=== PATIENT | female | born 1990 | race Hispanic/Latino ===

== ENCOUNTER 2017-10-19 02:58 | Inpatient (IN) | payer MEDICARE ==
[~2017-10-19] VITALS: Ht 160 cm; Wt 72.7 kg
[2017-10-19] MEDS ORDERED: MORPHINE SULFATE 2 MG/ML SYR IV STA (03:23)
[2017-10-19] MEDS ORDERED: SODIUM CHLORIDE 0.9% 1000ML 1,000 ML IV STA (03:23)
[2017-10-19] MEDS ORDERED: PANTOPRAZOLE 40 MG 10ML VIAL IV STA (03:23)
[2017-10-19] MEDS ORDERED: ONDANSETRON HCL 4 MG ORAL DISINTEGRATING TAB PO ONE (03:30)
[2017-10-19 03:44] LABS: BASOPHILS % 0.4 % (0.0-1.0); EOSINOPHILS % 0.1 % (0.0-6.0); HEMATOCRIT 40.4 % (34.2-44.1); HEMOGLOBIN 14.2 g/dL (12.0-16.0); LYMPHOCYTES # (AUTO) 1.6 (1.0-3.2); LYMPHOCYTES % 20.2 % (18.0-39.1); MEAN CORPUSCULAR HEMOGLOBIN 29.8 pg (28-32); MEAN CORPUSCULAR HGB CONC 35.1 g/dL (31-35); MEAN CORPUSCULAR VOLUME 84.7 fL (81-99); MONOCYTES # (AUTO) 0.6 (0.2-0.8); MONOCYTES % 7.4 % (4.4-11.3); NEUTROPHILS # (AUTO) 5.5 (2.1-6.9); NEUTROPHILS % 71.6 % (38.7-80.0); PLATELET COUNT 246 x10e3/uL (140-360); RED BLOOD COUNT 4.77 x10e6/uL (3.6-5.1); RED CELL DISTRIBUTION WIDTH 13.7 % (11.7-14.4)
[2017-10-19 03:48] LABS: CLARITY,URINE CLOUDY (CLEAR); COLOR,URINE RED (YELLOW); LEUKOCYTE ESTERASE ,URINE TRACE (NEGATIVE); PREGNANCY TEST, URINE NEGATIVE (NEGATIVE)
[2017-10-19 03:49] LABS: BILIRUBIN,URINE 1+ (NEGATIVE); KETONES,URINE NEGATIVE (NEGATIVE); NITRITE,URINE NEGATIVE (NEGATIVE); PROTEIN,URINE DIPSTICK 3+ (NEGATIVE); URINE UROBILINOGEN 4 mg/dL (0.2 - 1)
[2017-10-19 03:52] LABS: INR 1.06
[2017-10-19 03:53] LABS: PARTIAL THROMBOPLASTIN TIME 26.5 seconds (23.8-35.5)
[2017-10-19 04:01] LABS: BACTERIA,URINE FEW /HPF; EPITHELIAL CELLS,URINE FEW /LPF; RBC,URINE >50 /HPF (0-5)
[2017-10-19 04:03] LABS: ALANINE AMINOTRANSFERASE 69 IU/L (0-55); ALBUMIN 3.6 g/dL (3.5-5.0); ALBUMIN/GLOBULIN RATIO 0.9 (0.8-2.0); ALKALINE PHOSPHATASE 78 IU/L (40-150); AMYLASE 2978 U/L (25-125); ANION GAP 11.6 mmol/L (8-16); BLOOD UREA NITROGEN 14 mg/dL (7-26); BUN/CREATININE RATIO 18 (6-25); CALCIUM 9.4 mg/dL (8.4-10.2); CARBON DIOXIDE 26 mmol/L (22-29); CHLORIDE 102 mmol/L (98-107); CREATINE KINASE 123 IU/L (29-168); CREATININE, SERUM 0.77 mg/dL (0.57-1.11); EST GLOMERULAR FILTRATION RATE > 60 ML/MIN (60-); GLUCOSE 135 mg/dL (74-118); POTASSIUM 3.6 mmol/L (3.5-5.1); SODIUM 136 mmol/L (136-145)
--- NOTE | 2017-10-19 04:17 | Diagnostic Imaging Report ---
CHEST SINGLE (PORTABLE), 10/19/2017 3:23 AM Technique: CHEST SINGLE (PORTABLE) Comparison: None available. Clinical history: Abdominal pain, nausea, vomiting Findings: See Impression Impression: Limited by portable technique. 1. Normal cardiomediastinal silhouette for technique. 2. No consolidation. 3. No pleural effusion or pneumothorax. Signed by: Dr Stefany Gillis MD on 10/19/2017 4:13 AM
[2017-10-19 05:11] LABS: CHOL/HDL RATIO 2.7 (3.0-3.6)
--- NOTE | 2017-10-19 05:42 | Diagnostic Imaging Report ---
EXAM: CT ABDOMEN/PELVIS W DATE: 10/19/2017 4:08 AM INDICATION: \S\VICKIE/RUQ ABD PAIN, N/V \[id number] \S\[id number] COMPARISON: None TECHNIQUE: The abdomen and pelvis were scanned using a multidetector helical scanner. Coronal and sagittal reformations were obtained. Routine protocol performed. IV Contrast: 100 ml Isovue 300/370 FINDINGS: LOWER THORAX: No consolidations LIVER/BILIARY: No masses. No ductal dilatation. GALLBLADDER: No gallstones evident on CT. SPLEEN: Unremarkable PANCREAS: Slightly heterogeneous and enlarged pancreas with peripancreatic fluid and stranding. No evidence of pancreatic necrosis. ADRENALS: No nodules KIDNEYS: Symmetric perfusion. No enhancing masses. No hydronephrosis. GI TRACT: No wall thickening or evidence of obstruction. Normal appendix. VESSELS: Unremarkable PERITONEUM/RETROPERITONEUM: No free air or fluid collections. LYMPH NODES: No lymphadenopathy REPRODUCTIVE ORGANS/BLADDER: Unremarkable SOFT TISSUES: Unremarkable BONES: No suspicious bone lesions. IMPRESSION: Interstitial edematous pancreatitis. Signed by: Dr Stefany Gillis MD on 10/19/2017 5:38 AM
[2017-10-19] MEDS ORDERED: KCL 20MEQ/.9 SOD CHL 1,000 ML IV ONE (05:45)
[2017-10-19] MEDS ORDERED: ONDANSETRON HCL 4 MG ORAL DISINTEGRATING TAB PO PRN (05:45)
[2017-10-19] MEDS ORDERED: PROMETHAZINE HCL (IM) 25 MG/ML VIAL IV PRN (05:45)
--- OUTSIDE RECORDS SUMMARY | 2017-10-19 05:51 | XMS REPORT ---
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 Allergies, Adverse Reactions, Alerts This patient has no known allergies or adverse reactions. Medications This patient has no known medications. Results Test Description Test Time Test Comments Text Results Atomic Results Result Comments CT ABDOMEN/PELVIS W [place] [address] Patient Name: REKHA CASTILLO MR #: [id number] : 1990 Age/Sex: 27/F Req #: [id number] Adm Physician: Ordered by: SANKET ROSA MD Report #: [id number] Location: ER Room/Bed: Procedure: [id number] CT/CT ABDOMEN/PELVIS W Exam Date: 10/19/17 Exam Time: 455 REPORT STATUS: Signed EXAM: CT ABDOMEN/ PELVIS W DATE: 10/19/2017 4:08 AM INDICATION: S VICKIE/RUQ ABD PAIN, N/V S [id number] S 455 COMPARISON: None TECHNIQUE: The abdomen and pelvis were scanned using a multidetector helical scanner. Coronal and sagittal reformations were obtained. Routine protocol performed. IV Contrast: 100 ml Isovue 300/370 FINDINGS: LOWER THORAX: No consolidations LIVER/ BILIARY: No masses. No ductal dilatation. GALLBLADDER: No gallstones evident on CT. SPLEEN: Unremarkable PANCREAS: Slightly heterogeneous and enlarged pancreas with peripancreatic fluid and stranding. No evidence of pancreatic necrosis. ADRENALS: No nodules KIDNEYS: Symmetric perfusion. No enhancing masses. No hydronephrosis. GI TRACT: No wall thickening or evidence of obstruction. Normal appendix. VESSELS: Unremarkable PERITONEUM/RETROPERITONEUM: No free air or fluid collections. LYMPH NODES: No lymphadenopathy REPRODUCTIVE ORGANS/BLADDER: Unremarkable SOFT TISSUES : Unremarkable BONES: No suspicious bone lesions. IMPRESSION: Interstitial edematous pancreatitis. Signed by: Dr Sintia Gillis MD on 5:38 AM Dictated By: SINTIA GILLIS MD 7 Transcribed By: KIRT on 10/19/17537 COPY TO: SANKET ROSA MD CHEST SINGLE (PORTABLE) [place] [address] Patient Name: REKHA CASTILLO MR #: [id number] : 1990 Age/Sex: 27/F Req #: [id number] Adm Physician: Ordered by: SANKET ROSA MD Report #: [id number] Location: ER Room/Bed: Procedure: [id number] DX/CHEST SINGLE (PORTABLE) Exam Date: 10/19/17 Exam Time: 0340 REPORT STATUS: Signed CHEST SINGLE ( PORTABLE), 10/19/2017 3:23 AM Technique: CHEST SINGLE (PORTABLE) Comparison: None available. Clinical history: Abdominal pain, nausea, vomiting Findings: See Impression Impression: Limited by portable technique. 1. Normal cardiomediastinal silhouette for technique. 2. No consolidation. 3. No pleural effusion or pneumothorax. Signed by: Dr Sintia Gillis MD on 10/19/2017 4:13 AM Dictated By: SINTIA GILLIS MD 2 Transcribed By: KIRT on 10/19/17412 COPY TO: SANKET ROSA MD
[2017-10-19] MEDS ORDERED: SODIUM CHLORIDE 0.9% 50ML 50 ML ONE (06:29)
[2017-10-19] MEDS ORDERED: IOPAMIDOL 370 MG/ML 200 ML INFUS..BTL INJ ONE (06:30)
[2017-10-19 06:36] LABS: LIPASE 10369 U/L (8-78)
--- NOTE | 2017-10-19 07:52 | Diagnostic Imaging Report ---
PROCEDURE:US GALLBLADDER COMPARISON:CT abdomen and pelvis also 10/19/2017. INDICATIONS:RUQ Pain TECHNIQUE: Duenas-scale and color doppler transverse and longitudinal images of the right upper quadrant of the abdomen were obtained. FINDINGS: Liver: 13 cm in right mid-clavicular line. Normal parenchymal echogenicity. No masses. Main portal vein: 1.0 cm in caliber. Hepatopedal flow. Gallbladder: Multiple mobile shadowing calculi without wall thickening or pericholecystic fluid. Common Bile Duct: 0.4 cm Sonographic Nascimento's sign: Reported as negative. Right kidney: 12 cm in length. Normal renal cortical echogenicity. No solid masses or hydronephrosis. Pancreas: The visualized portions are unremarkable. Inferior vena cava: Patent Aorta: Non-aneurysmal Ascites: None in the right upper quadrant of the abdomen. CONCLUSION: Cholelithiasis without sonographic evidence of acute cholecystitis. Acute pancreatitis, seen to better advantage on comparison CT from earlier 10/19/2017. Dictated by: Chivo Downey M.D. on 10/19/2017 at 7:54 Electronically approved by: Chivo Downey M.D. on 10/19/2017 at 7:54
[2017-10-19] MEDS: D5.45%NS/KCL 20MEQ 1,000 ML IV SCH ×3 (08:30→21:25)
[2017-10-19] MEDS: PANTOPRAZOLE 40 MG 10ML VIAL IV SCH ×2 (08:30→16:12)
[2017-10-19] MEDS: PIPER-TAZ 3.375 GM 50 ML IV SCH ×3 (08:30→17:44)
[2017-10-19] MEDS: MORPHINE SULFATE 2 MG/ML SYR IV PRN ×3 (11:05→20:51)
[2017-10-19 15:50] VITALS: BP 117/79
[2017-10-19 16:02] VITALS: BP 120/66
[2017-10-19] MEDS: FAMOTIDINE 20 MG/2 ML VIAL IV SCH (18:18)
[2017-10-19 20:00] VITALS: BP 121/56
[2017-10-20] VITALS (7 sets, daily range): BP systolic 102–126; BP diastolic 56–70
[2017-10-20] MEDS ORDERED: SODIUM CHLORIDE 0.9% 50ML 50 ML ONE (00:17)
[2017-10-20] MEDS: D5.45%NS/KCL 20MEQ 1,000 ML IV SCH ×3 (03:46→21:26)
[2017-10-20 07:07] LABS: BASOPHILS % 0.5 % (0.0-1.0); EOSINOPHILS # (AUTO) 0.1 (0.0-0.4); EOSINOPHILS % 2.3 % (0.0-6.0); HEMATOCRIT 36.2 % (34.2-44.1); HEMOGLOBIN 12.2 g/dL (12.0-16.0); LYMPHOCYTES # (AUTO) 2.1 (1.0-3.2); LYMPHOCYTES % 34.6 % (18.0-39.1); MEAN CORPUSCULAR HEMOGLOBIN 29.4 pg (28-32); MEAN CORPUSCULAR HGB CONC 33.7 g/dL (31-35); MEAN CORPUSCULAR VOLUME 87.2 fL (81-99); MONOCYTES # (AUTO) 0.5 (0.2-0.8); NEUTROPHILS # (AUTO) 3.3 (2.1-6.9); NEUTROPHILS % 54.3 % (38.7-80.0); PLATELET COUNT 196 x10e3/uL (140-360); RED BLOOD COUNT 4.15 x10e6/uL (3.6-5.1); RED CELL DISTRIBUTION WIDTH 14.3 % (11.7-14.4)
[2017-10-20] MEDS: FAMOTIDINE 20 MG/2 ML VIAL IV SCH ×2 (07:52→17:07)
[2017-10-20 07:53] LABS: ALANINE AMINOTRANSFERASE 43 IU/L (0-55); ALBUMIN 3.1 g/dL (3.5-5.0); ALKALINE PHOSPHATASE 68 IU/L (40-150); AMYLASE 460 U/L (25-125); BLOOD UREA NITROGEN 5 mg/dL (7-26); BUN/CREATININE RATIO 7 (6-25); CALCIUM 8.5 mg/dL (8.4-10.2); CARBON DIOXIDE 26 mmol/L (22-29); CHLORIDE 108 mmol/L (98-107); CREATININE, SERUM 0.74 mg/dL (0.57-1.11); EST GLOMERULAR FILTRATION RATE > 60 ML/MIN (60-); GLUCOSE 96 mg/dL (74-118); LIPASE 507 U/L (8-78); SODIUM 138 mmol/L (136-145)
[2017-10-20] MEDS: MORPHINE SULFATE 2 MG/ML SYR IV PRN ×2 (11:05→22:30)
--- NOTE | 2017-10-20 18:28 | Consultation ---
DATE OF CONSULTATION: October 20, 2017 SURGICAL CONSULTATION CHIEF COMPLAINT: Abdominal pain. HISTORY OF PRESENT ILLNESS: The patient is a 27-year-old female with a 1-day history of pain starting in the epigastric area, radiating into the back with nausea but no vomiting. No fever, chills or diarrhea. PAST MEDICAL HISTORY: Unremarkable for chronic illness. SURGICAL HISTORY: Positive for a left foot injury with ORIF. ALLERGIES: SHE IS ALLERGIC TO NO DRUGS. SOCIAL HABITS: The patient does not smoke or drink alcohol. REVIEW OF SYSTEMS: No chest pain, shortness of breath or cough. She does have poor hearing on the right ear. PHYSICAL EXAMINATION: VITALS: Stable. She is afebrile. GENERAL: She is awake, alert, in no apparent distress. HEENT: Sclerae anicteric. NECK: Supple. LUNGS: Clear. HEART: Regular rate and rhythm. ABDOMEN: Soft with mild guarding in the epigastrium with no rebound. EXTREMITIES: Without cyanosis or edema. Her creatinine is 0.7. Bilirubin was 1.5, and repeated level was 0.6. Amylase was 2978 with repeated value 460. Lipase was 10,369 and has come down to 507. Gallbladder ultrasound has shown gallstone with evidence of pancreatic inflammation. ASSESSMENT: Cholelithiasis with possible passage of stone with pancreatitis resolving. PLAN: Laparoscopic cholecystectomy in a.m. Attendant risks were discussed with patient. Job#: [id number] TIMUR
[2017-10-21] VITALS: BP 118/68
[2017-10-21 04:00] VITALS: BP 96/59
[2017-10-21] MEDS: D5.45%NS/KCL 20MEQ 1,000 ML IV SCH ×3 (06:16→19:17)
[2017-10-21 06:59] LABS: BASOPHILS % 0.5 % (0.0-1.0); EOSINOPHILS # (AUTO) 0.1 (0.0-0.4); EOSINOPHILS % 2.4 % (0.0-6.0); HEMATOCRIT 37.1 % (34.2-44.1); HEMOGLOBIN 12.7 g/dL (12.0-16.0); LYMPHOCYTES # (AUTO) 1.3 (1.0-3.2); MEAN CORPUSCULAR HEMOGLOBIN 29.9 pg (28-32); MEAN CORPUSCULAR HGB CONC 34.2 g/dL (31-35); MEAN CORPUSCULAR VOLUME 87.3 fL (81-99); MONOCYTES # (AUTO) 0.5 (0.2-0.8); MONOCYTES % 8.4 % (4.4-11.3); NEUTROPHILS # (AUTO) 3.6 (2.1-6.9); NEUTROPHILS % 65.5 % (38.7-80.0); PLATELET COUNT 175 x10e3/uL (140-360); RED BLOOD COUNT 4.25 x10e6/uL (3.6-5.1); RED CELL DISTRIBUTION WIDTH 14.1 % (11.7-14.4)
[2017-10-21 07:24] LABS: BLOOD UREA NITROGEN 6 mg/dL (7-26); BUN/CREATININE RATIO 8 (6-25); CALCIUM 9.1 mg/dL (8.4-10.2); CARBON DIOXIDE 26 mmol/L (22-29); CREATININE, SERUM 0.74 mg/dL (0.57-1.11); EST GLOMERULAR FILTRATION RATE > 60 ML/MIN (60-); GLUCOSE 93 mg/dL (74-118); LIPASE 76 U/L (8-78)
[2017-10-21 07:38] LABS: ANION GAP 9.2 mmol/L (8-16); CHLORIDE 105 mmol/L (98-107); POTASSIUM 4.2 mmol/L (3.5-5.1); SODIUM 136 mmol/L (136-145)
[2017-10-21 08:33] VITALS: BP 126/58
[2017-10-21] MEDS: FAMOTIDINE 20 MG/2 ML VIAL IV SCH ×2 (08:53→16:56)
[2017-10-21] MEDS ORDERED: BUPIVACAINE 0.25%/EPI 30ML SDV INJ ONE (13:24)
[2017-10-21 13:59] VITALS: BP 118/57
[2017-10-21] MEDS ORDERED: FENTANYL CITRATE/PF 100MCG/2 ML INJ ONE ×2 (14:49→16:04)
[2017-10-21] MEDS ORDERED: MIDAZOLAM HCL 2 MG/2 ML VIAL ONE (14:49)
--- NOTE | 2017-10-21 15:53 | Operative Report ---
DATE OF PROCEDURE: October 21, 2017 PREOPERATIVE DIAGNOSIS: Gallstone pancreatitis. POSTOPERATIVE DIAGNOSIS: Gallstone pancreatitis. OPERATIVE PROCEDURE: Laparoscopic cholecystectomy. ICT PROJECT MANAGER: None. ANESTHESIA: General endotracheal. INDICATIONS: This is a 27-year-old female with history of abdominal pain in the epigastrium with gallstones and elevated serum lipase. After the pancreatitis has resolved, patient consented for laparoscopic cholecystectomy with attendant risks discussed. PROCEDURE FINDINGS: Chronic cholecystitis with cholelithiasis. DESCRIPTION OF PROCEDURE: The patient was brought to the OR intubated. Abdomen was prepped with alcohol and draped in sterile fashion. Infraumbilical incision was made and a 10-mm port inserted. Insufflation then began. Under direct vision, the other port sites were placed in the mid epigastric and right upper quadrant. Gallbladder was chronically distended. Fundus was retracted in cephalad direction. Neck of the gallbladder was retracted laterally. With blunt dissection, the cystic artery was isolated, triply clipped and divided. Cystic duct was dissected down to the junction with the common bile duct, and the cystic duct was then triply clipped 5 mm away from the junction and the cystic duct divided between clips. Gallbladder was detached from the liver with cautery and taken out through the umbilical incision. The operative field was then irrigated. Hemostasis achieved. All ports were removed under direct vision. Fascial closure with #0 Vicryl and skin with a subcuticular stitch. The patient was extubated and transported to the recovery room. Estimated blood loss was 5 mL. Job#: [id number]
[2017-10-21] MEDS ORDERED: PROPOFOL IV EMULSION 10 MG/ML 20 ML VIAL ONE (17:37)
[2017-10-21] MEDS ORDERED: KETOROLAC TROMETHAMINE 30 MG/ML VIAL ONE (17:37)
[2017-10-21] MEDS ORDERED: DEXAMETHASONE SOD PHOS INJ 4 MG/ML VIAL ONE (17:37)
[2017-10-21] MEDS ORDERED: LIDOCAINE HCL 2% LOCAL INJ 5 ML SDV VIAL INJ ONE (17:37)
[2017-10-21] MEDS ORDERED: ROCURONIUM BROMIDE 10 MG/ML 5ML VIAL ONE (17:37)
[2017-10-21] MEDS ORDERED: SEVOFLURANE INHAL SOLN 250 ML PEN BTL ONE (17:37)
[2017-10-21] MEDS ORDERED: ONDANSETRON HCL INJ 2 MG/ML VIAL ONE (17:37)
[2017-10-21] MEDS: ACETAMINOPHEN/CODEINE 300MG - 30MG TAB PO PRN (18:13)
[2017-10-21 22:13] VITALS: BP 119/73
[2017-10-22] VITALS: BP 124/67
[2017-10-22] MEDS: ACETAMINOPHEN/CODEINE 300MG - 30MG TAB PO PRN (00:54)
[2017-10-22 04:00] VITALS: BP 110/56
[2017-10-22 08:02] VITALS: BP 98/51
[2017-10-22] MEDS: FAMOTIDINE 20 MG/2 ML VIAL IV SCH (08:18)
--- NOTE | 2017-10-22 14:24 | Discharge Summary ---
FINAL DIAGNOSIS: Acute pancreatitis due to gallstones. SECONDARY DIAGNOSIS: Autism. ROUTER OPERATOR RADIAL: Dr. Myers PROCEDURES/STUDIES PERFORMED: Laparoscopic cholecystectomy. HISTORY: Per [facility] HOSPITAL COURSE: The patient was admitted. She was put on n.p.o. IV fluids were started. Clinically, her pancreatitis resolved fairly quickly. Her lipase was normal. The patient underwent uneventful laparoscopic cholecystectomy. The patient was also found to have chronic cholecystitis intraoperatively. The patient currently is tolerating a soft diet. She was advised to be on a low fat diet. The patient was prescribed 20 tablets of Tylenol No. 3 as needed. I discussed this case with Dr. Myers. The patient will be going home today. She will follow up with Dr. Myers next week. The patient was seen and examined today. It took 32 minutes total to discharge this patient. CONDITION ON DISCHARGE: Improved. DISCHARGE MEDICATIONS: Please see medication reconciliation form. DARA JACKMAN M.D. Job#: [id number]
== END 2017-10-22 09:34 | disposition home or self-care (01) | DRG 418 ==
LOC: ER 02:58 → ERHOLD 05:48 → MED/SURG 15:18
PROVIDERS: ADMIT Internal Medicine; ATTEND Internal Medicine
PROC: 0FT44ZZ Resection of Gallbladder, Percutaneous Endoscopic Approach (ICD-10-PCS; principal; 2017-10-21 14:14)
DX: K85.10 Biliary acute pancreatitis without necrosis or infection (principal); K80.10 Calculus of gallbladder with chronic cholecystitis without obstruction
CPT/HCPCS: 36415; 71045; 74177; 76705; 80048; 80053; 80061; 81001; 81025; 82150; 82550; 82553; 83690; 83735; 84484; 85025; 85610; 85730; 88304; 99284; J1100; J1885; J2001; J2250; J2270; J2405; J2543; J2550; J7030; Q9967

== ENCOUNTER 2018-07-26 12:30 | Emergency (ER) | payer MEDICARE ==
[~2018-07-26] VITALS: Ht 160 cm; Wt 72.6 kg
[2018-07-26 13:26] LABS: CLARITY,URINE SL CLOUDY (CLEAR); COLOR,URINE YELLOW (YELLOW); PROTEIN,URINE DIPSTICK 1+ (NEGATIVE)
[2018-07-26 13:27] LABS: BILIRUBIN,URINE NEGATIVE (NEGATIVE); KETONES,URINE NEGATIVE (NEGATIVE); LEUKOCYTE ESTERASE ,URINE NEGATIVE (NEGATIVE); NITRITE,URINE NEGATIVE (NEGATIVE); URINE UROBILINOGEN 0.2 mg/dL (0.2 - 1)
[2018-07-26 13:42] LABS: AMORPHOUS SEDIMENT,URINE MODERATE (FEW); BACTERIA,URINE MANY /HPF
[2018-07-26] MEDS ORDERED: SODIUM CHLORIDE 0.9% 1000ML 1,000 ML IV STA (14:04)
[2018-07-26] MEDS ORDERED: MORPHINE SULFATE 2 MG/ML SYR 1ML IV STA (14:04)
[2018-07-26] MEDS ORDERED: MORPHINE SULFATE INJ 4 MG/ML INJ 1ML IV ONE (14:15)
[2018-07-26] MEDS ORDERED: ONDANSETRON HCL INJ 2MG/ML 2ML 2 MG/ML VIAL IV ONE (14:15)
[2018-07-26] MEDS ORDERED: PANTOPRAZOLE 40 MG 10ML VIAL IV ONE (14:15)
[2018-07-26 16:07] LABS: BASOPHILS % 0.3 % (0.0-1.0); EOSINOPHILS % 0.3 % (0.0-6.0); HEMOGLOBIN 15.3 g/dL (12.0-16.0); LYMPHOCYTES # (AUTO) 1.1 (1.0-3.2); LYMPHOCYTES % 18.9 % (18.0-39.1); MEAN CORPUSCULAR HEMOGLOBIN 30.2 pg (28-32); MEAN CORPUSCULAR HGB CONC 34.8 g/dL (31-35); MEAN CORPUSCULAR VOLUME 86.8 fL (81-99); MONOCYTES # (AUTO) 0.4 (0.2-0.8); MONOCYTES % 7.2 % (4.4-11.3); NEUTROPHILS # (AUTO) 4.3 (2.1-6.9); NEUTROPHILS % 73.1 % (38.7-80.0); PLATELET COUNT 233 x10e3/uL (140-360); RED BLOOD COUNT 5.07 x10e6/uL (3.6-5.1); RED CELL DISTRIBUTION WIDTH 13.2 % (11.7-14.4)
[2018-07-26 16:34] LABS: ALANINE AMINOTRANSFERASE 59 IU/L (0-55); ALBUMIN 4.4 g/dL (3.5-5.0); ALBUMIN/GLOBULIN RATIO 1.2 (0.8-2.0); ALKALINE PHOSPHATASE 83 IU/L (40-150); AMYLASE 108 U/L (25-125); ANION GAP 15.6 mmol/L (8-16); BLOOD UREA NITROGEN 19 mg/dL (7-26); BUN/CREATININE RATIO 24 (6-25); CALCIUM 9.6 mg/dL (8.4-10.2); CARBON DIOXIDE 23 mmol/L (22-29); CHLORIDE 101 mmol/L (98-107); CREATININE, SERUM 0.78 mg/dL (0.57-1.11); EST GLOMERULAR FILTRATION RATE > 60 ML/MIN (60-); GLUCOSE 95 mg/dL (74-118); LIPASE 74 U/L (8-78); POTASSIUM 3.6 mmol/L (3.5-5.1); SODIUM 136 mmol/L (136-145)
--- NOTE | 2018-07-26 19:42 | Diagnostic Imaging Report ---
EXAM: CT Abdomen and Pelvis WITH contrast INDICATION: ^N/V/D, LOWER ABD PAIN COMPARISON: CT abdomen and pelvis 10/19/2017. TECHNIQUE: Abdomen and pelvis were scanned utilizing a multidetector helical scanner from the lung base to the pubic symphysis after administration of IV contrast. Coronal and sagittal reformations were obtained. Routine protocol was performed. Scan was performed when during portal venous phase. IV CONTRAST: 100 mL of Isovue 370 ORAL CONTRAST: Water COMPLICATIONS: None RADIATION DOSE: Total DLP: 394.82 mGy*cm Estimated effective dose: (DLP x 0.015 x size factor) mSv CTDIvol has been reviewed. It is below the limits set by the Radiation Protocol Committee (RPC). FINDINGS: LINES and TUBES: None. LOWER THORAX: Unremarkable HEPATOBILIARY: No focal hepatic lesions. No biliary ductal dilation. GALLBLADDER: There are cholecystectomy clips. SPLEEN: No splenomegaly. PANCREAS: No focal masses or ductal dilatation. ADRENALS: No adrenal nodules KIDNEYS/URETERS: Kidneys enhance symmetrically. No hydronephrosis. No cystic or solid mass lesions. No stones. GI TRACT: No abnormal distention, wall thickening, or evidence of bowel obstruction. Appendix is not clearly identified. There is however no fat stranding or adenopathy in the right lower quadrant to suggest appendicitis. PELVIC ORGANS/BLADDER: Unremarkable. LYMPH NODES: No lymphadenopathy. VESSELS: Unremarkable. PERITONEUM / RETROPERITONEUM: No free air or fluid. BONES: Unremarkable. SOFT TISSUES: Unremarkable. IMPRESSION: No acute abnormalities in the abdomen or pelvis. Signed by: Dr. Bolivar Forman M.D. on 07/26/2018 7:39 PM
[2018-07-26 19:50] VITALS: BP 122/79
[2018-07-26] MEDS ORDERED: SODIUM CHLORIDE 0.9% 50ML 50 ML ONE (21:49)
[2018-07-26] MEDS ORDERED: IOPAMIDOL 370 MG/ML 200 ML INFUS..BTL INJ ONE (21:49)
== END 2018-07-26 19:58 | disposition home or self-care (01) ==
LOC: ER 12:30
DX: R10.30 Lower abdominal pain, unspecified (principal); R11.2 Nausea with vomiting, unspecified; R19.7 Diarrhea, unspecified
CPT/HCPCS: 36415; 74177; 80053; 81001; 81025; 82150; 83690; 83735; 85025; 99284; C9113; J2270; J2405; J7030; Q9967

== ENCOUNTER 2018-08-20 23:39 | Emergency (ER) | payer MEDICARE ==
[~2018-08-20] VITALS: Ht 160 cm; Wt 72.6 kg
== END 2018-08-21 00:36 | disposition left against medical advice (07) ==
LOC: ER 23:39
DX: R22.0 Localized swelling, mass and lump, head (principal)

== ENCOUNTER 2019-03-30 20:14 | Emergency (ER) | payer MEDICARE ==
[~2019-03-30] VITALS: Ht 160 cm; Wt 72.6 kg
[2019-03-30] MEDS ORDERED: LIDOCAINE HCL 1% LOCAL INJ 20 ML VIAL ONE (21:29)
[2019-03-30] MEDS ORDERED: IBUPROFEN 200 MG TAB PO ONE (21:30)
[2019-03-30] MEDS ORDERED: CEFTRIAXONE SOD 1 GM VIAL IM ONE (21:30)
[2019-03-30] MEDS ORDERED: ACETAMINOPHEN 325 MG TAB PO ONE (21:30)
== END 2019-03-30 22:00 | disposition home or self-care (01) ==
LOC: ER 20:14
DX: H66.92 Otitis media, unspecified, left ear (principal); R51 Headache; F84.0 Autistic disorder; H91.3 Deaf nonspeaking, not elsewhere classified
CPT/HCPCS: 99282; J0696; J2001

== ENCOUNTER 2020-01-30 18:57 | Emergency (ER) | payer MEDICARE ==
[~2020-01-30] VITALS: Ht 160 cm; Wt 72.6 kg
[2020-01-30] MEDS ORDERED: SODIUM CHLORIDE 0.9% 1000ML 1,000 ML IV STA ×2 (19:45→21:32)
[2020-01-30] MEDS ORDERED: EPINEPHRINE HCL 1:1000 1ML 1 MG/ML AMP IM ONE (19:45)
[2020-01-30] MEDS ORDERED: METHYLPREDNISOLONE SOD SUCC 125 MG/2ML VIAL IV ONE (19:45)
[2020-01-30] MEDS ORDERED: FAMOTIDINE 20 MG/2 ML VIAL IV STA (19:45)
--- NOTE | 2020-01-30 19:51 | Emergency Department Note ---
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 Any updates have been documented here. Past Medical History Recent Fever: No Clinical Suspicion of Infectio: No New/Unexplained Change in Ment: No Past Medical History: None Other Medical History: AUTISM DEAF Past Surgical History: Cholecysctectomy Other Surgery: FOOT SURGERY Social History Smoking Cessation: Never Smoker Alcohol Use: None Any Illegal Drug Use: No Other Last Tetanus: UNKNOWN Review of Systems Review of Systems Constitutional: Reports weakness EENTM: Reports no symptoms Cardiovascular: Reports no symptoms Respiratory: Reports no symptoms Gastrointestinal: Reports no symptoms Genitourinary: Reports no symptoms Musculoskeletal: Reports no symptoms Integumentary: Reports rash Neurological: Reports no symptoms Psychological: Reports no symptoms Endocrine: Reports no symptoms Hematological/Lymphatic: Reports no symptoms Physical Exam Related Data Allergies: Coded Allergies: clindamycin (Verified Allergy, Unknown, 07/26/18) corn (Verified Allergy, Unknown, 10/19/17) egg (Verified Allergy, Unknown, 10/19/17) shrimp (Verified Allergy, Unknown, 10/19/17) Triage Vital Signs Vital Signs Date Time Temp Pulse Resp B/P (MAP) Pulse Ox O2 Delivery O2 Flow Rate FiO2 01/30/20 19:35 97.7 72 20 139/79 100 Room Air Vital signs reviewed: Yes Physical Exam CONSTITUTIONAL Constitutional: Present obese, Present distressed, Present ill appearing HENT HENT: Present normocephalic, Present atraumatic, Present oropharynx clear/moist, Present nose normal HENT L/R: Present left ext ear normal, Present right ext ear normal EYES Eyes: Reports PERRL, Reports conjunctivae normal NECK Neck: Present ROM normal PULMONARY Pulmonary: Present effort normal, Present breath sounds normal CARDIOVASCULAR Cardiovascular: Present regular rhythm, Present heart sounds normal, Present capillary refill normal, Present normal rate GASTROINTESTINAL Abdominal: Present soft, Present nontender, Present bowel sounds normal GENITOURINARY Genitourinary: Present exam deferred SKIN Skin: Present other (papular lesion posterrior ) MUSCULOSKELETAL Musculoskeletal: Present ROM normal NEUROLOGICAL Neurological: Present alert, Present oriented x 3, Present no gross motor or sensory deficits PSYCHOLOGICAL Psychological: Present mood/affect normal, Present judgement normal Assessment & Plan Medical Decision Making MDM Diff Dx : anaphylactic shock, allergic reaction, hypotension Assessment & Plan Final Impression: (1) Allergy to ant bite Depart Disposition: HOME, SELF-CARE Medications in the ED Sodium Chloride 1,000 ml @ 0 mls/hr Q0M STAT IV Last administered on 01/30/20 20:03; Admin Dose 1,000 MLS/HR; Start 01/30/20 at 19:45; Stop 01/30/20 at 19:46 Methylprednisolone Sodium Succinate 125 mg ONCE ONCE IV Last administered on 01/30/20at 20:04; Admin Dose 125 MG; Start 01/30/20 at 19:45; Stop 01/30/20 at 19:46 Famotidine 20 mg NOW STAT IV Last administered on 01/30/20at 20:10; Admin Dose 20 MG; Start 01/30/20 at 19:45; Stop 01/30/20 at 19:46 Epinephrine HCl 0.3 mg ONCE ONCE IM Last administered on 01/30/20at 20:02; Admin Dose 0.3 MG; Start 01/30/20 at 19:45; Stop 01/30/20 at 19:46 Sodium Chloride 1,000 ml @ ud STK-MED ONCE .ROUTE ; Start 01/30/20 at 21:38; Stop 01/30/20 at 21:32; Status DC Sodium Chloride 1,000 ml @ 0 mls/hr Q0M STAT IV Last administered on 01/30/20at 21:36; Admin Dose 2,000 MLS/HR; Start 01/30/20 at 21:32; Stop 01/30/20 at 21:33 BULE PATEL DO Jan 30, 2020 19:51
--- OUTSIDE RECORDS SUMMARY | 2020-01-30 20:14 | XMS REPORT | Continuity of Care Document ---
Author Author [facility] Organization [facility] Address 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 Phone ALANA PATEL MD PCP Dimitrios ROSA Attphys Unavailable AUGUSTINA, Dimitrios YICHING Attphys Unavailable AUGUSTINA, Dimitrios YICHING Admphys Unavailable Payers Payer Name Policy Type Policy Number Effective Date Expiration Date Rubin shah Medicare A & B [id number] 2013 00:00:00 [facility] Problems Condition Name Condition Details Condition Category Status Onset Date Resolution Date Last Treatment Date Treating Clinician Comments Source Pancreatitis Pancreatitis Problem Active [facility] Elevated liver enzymes Elevated liver enzymes Problem Active [facility] Allergies, Adverse Reactions, Alerts Allergy Name Allergy Type Status Severity Reaction(s) Onset Date Inacti ve Date Treating Clinician Comments Source Clindamycin Allergy to Substance Active 2018-07-26 00:00:00 [facility] Yale Allergy to Substance Active 2017-10-19 00:00:00 [facility] Eggs Allergy to Substance Active 2017-10-19 00:00:00 [facility] shrimp Allergy to Substance Active 2017-10-19 00:00:00 [facility] Medications This patient has no known medications. Procedures Procedure Date / Time Performed Performing Clinician Sour e Computed tomography of abdomen and pelvis with contrast 2018 00:00:00 SANKET ROSA [facility] Encounters Start Date/Time End Date/Time Encounter Type Admission Type Attendi [facility] Care Department Encounter ID Source 2019-03-30 20:14:00 2019-03-30 22:00:00 Departed Emergency Room [facility] [id number] [facility] 2018-08-20 23:39:00 2018-08-21 00:36:00 Departed Emergency Room [facility] [id number] [facility] Patients [facility] 2018-07-26 12:30:00 2018-07-26 19:58:00 Departed Emergency Room 1 SANKET ROSA [facility] [id number] [facility] 2017-10-19 05:48:00 2017-10-22 09:34:00 Discharged Inpatient 1 DARA JACKMAN [facility] [id number] [facility] Results Test Description Test Time Test Comments Results Result Comments Source CT ABDOMEN/PELVIS W 2018-07-26 19:35:00 [facility] [address] [place] [address] Patient Name: REKHA CASTILLO MR #: [id number] : 1990 Age/Sex: 27/F Req #: [id number] Adm Physician: Ordered by: SANKET ROSA MD Report #: [id number] Location: ER Room/Bed: Procedure: [id number] CT/CT ABDOMEN/PELVIS W Exam Date: 07/26/18 Exam Time: 1746 REPORT STATUS: Signed EXAM: CT Abdomen and Pelvis WITH contrast INDICATION: N/V/D, LOWER ABD PAIN COMPARISON: CT abdomen and pelvis 10/19/2017. TECHNIQUE: Abdomen and pelvis were scanned utilizing a multidetector helical scanner from the lung base to the pubic symphysis after administration of IV contrast. Coronal and sagittal reformations were obtained. Routine protocol was performed. Scan was performed when during portal venous phase. IV CONTRAST: 100 mL of Isovue 370 ORAL CONTRAST: Water COMPLICATIONS: None RADIATION DOSE: Total DLP: 394.82 mGy*cm Estimated effective dose: (DLP x 0.015 x size factor) mSv CTDIvol has been reviewed. It is below the limits set by the Radiation Protocol Committee (RPC). FINDINGS: LINES and TUBES: None. LOWER THORAX: Unremarkable HEPATOBILIARY: No focal hepatic lesions. No biliary ductal dilation. GALLBLADDER: There are cholecystectomy clips. SPLEEN: No splenomegaly. PANCREAS: No focal masses or ductal dilatation. ADRENALS: No adrenal nodules KIDNEYS/URETERS: Kidneys enhance symmetrically. No hydronephrosis. No cystic or solid mass lesions. No stones. GI TRACT: No abnormal distention, wall thickening, or evidence of bowel obstruction. Appendix is not clearly identified. There is however no fat stranding or adenopathy in the right lower quadrant to suggest appendicitis. PELVIC ORGANS/BLADDER: Unremarkable. LYMPH NODES: No lymphadenopathy. VESSELS: Unremarkable. PERITONEUM / RETROPERITONEUM: No free air or fluid. BONES: Unremarkable. SOFT TISS UES: Unremarkable. IMPRESSION: No acute abnormalities in the abdomen or pelvis. Signed by: Dr. Bolivar Welch M.D. on 07/26/2018 7:39 PM Dictated By: BOLIVAR WELCH MD 38 Transcribed By: KIRT on 07/26/181938 COPY TO: SANKET ROSA MD Magnesium Level 2018-07-26 16:42:00 Test Item Magnesium Level (test code = 27877-5) 2.9 1.3-2.1 [facility] HospitalMagnesium Zfvtr2375-08-86 16:42:00* Test Item Value Reference Range Interpretation Comments Magnesium Level (test code = 45608-9) 2.9 1.3-2.1 H [facility] HospitalMagnesium Qcpyv5470-20-07 16:42:00* Test Item Value Reference Range Interpretation Comments Magnesium Level (test code = 31646-3) 2.9 1.3-2.1 [facility] Leytn0352-80-43 16:35:00* Test Item Value Reference Range Interpretation Comments Sodium Level (test code = 2951-2) 136 136-145 [facility] HospitalPotassium Pglkx3080-42-07 16:35:00* Test Item Value Reference Range Interpretation Comments Potassium Level (test code = 2823-3) 3.6 3.5-5.1 [facility] HospitalChloride Vuoys9374-44-65 16:35:00* Test Item Value Reference Range Interpretation Comments Chloride Level (test code = 2075-0) 101 98-107 [facility] HospitalCarbon Dioxide Pymlb5390-04-04 16:35:00* Test Item Value Reference Range Interpretation Comments Carbon Dioxide Level (test code = 2028-9) 23 22-29 [facility] HospitalAnion Lkf5995-38-86 16:35:00* Test Item Value Reference Range Interpretation Comments Anion Gap (test code = 78593-4) 15.6 8-16 [facility] HospitalBlood Urea Dxcpdvcp8797-37-67 16:35:00* Test Item Value Reference Range Interpretation Comments Blood Urea Nitrogen (test code = 3094-0) 19 7-26 [facility] HospitalCreatinine2019-02-18 16:35:00* Test Item Value Reference Range Interpretation Comments Creatinine (test code = 2160-0) 0.78 0.57-1.11 [facility] HospitalBUN/Creatinine Obwrp7637-79-88 16:35:00* Test Item Value Reference Range Interpretation Comments BUN/Creatinine Ratio (test code = 3097-3) 24 6-25 [facility] HospitalEstimat Glomerular Filtration Rate 2018-07-26 16:35:00* Test Item Value Reference Range Interpretation Comments Estimat Glomerular Filtration Rate (test code = 616761578) > 60 >60 Ranges were taken from the National Kidney Disease Education Program and the [facility] literature.Reference ranges:60 or greater: Vbfpmr93-75 ( for 3 consecutive months): Chronic kidney disease 15 or less: Kidney failureHouston Methodist West HospitalGlucose Chqby6880-14-53 16:35:00* Test Item Value Reference Range Interpretation Comments Glucose Level (test code = ODI1668) 95 74-118 [facility] HospitalCalcium Tiarg9702-73-17 16:35:00* Test Item Value Reference Range Interpretation Comments Calcium Level (test code = 26330-2) 9.6 8.4-10.2 [facility] HospitalTotal Lrxygzxbt5186-74-07 16:35:00* Test Item Value Reference Range Interpretation Comments Total Bilirubin (test code = 1975-2) 0.8 0.2-1.2 [facility] HospitalAspartate Amino Transf (AST/SGOT) 2018-07-26 16:35:00* Test Item Value Reference Range Interpretation Comments Aspartate Amino Transf (AST/SGOT) (test code = Aspartate Amino Transf (AST/SGOT)) 43 5-34 H [facility] HospitalAlanine Aminotransferase (ALT/SGPT) 2018-07-26 16:35:00* Test Item Value Reference Range Interpretation Comments Alanine Aminotransferase (ALT/SGPT) (test code = 1742-6) 59 0-55 [facility] HospitalTotal Rxtutoh5572-45-02 16:35:00* Test Item Value Reference Range Interpretation Comments Total Protein (test code = 2885-2) 8.1 6.5-8.1 [facility] HospitalAlbumin2019-02-18 16:35:00* Test Item Value Reference Range Interpretation Comments Albumin (test code = 1751-7) 4.4 3.5-5.0 [facility] HospitalGlobulin2019-02-18 16:35:00* Test Item Value Reference Range Interpretation Comments Globulin (test code = 92704-6) 3.7 2.3-3.5 H [facility] HospitalAlbumin/Globulin Ddmuu2609-38-58 16:35:00 * Test Item Value Reference Range Interpretation Comments Albumin/Globulin Ratio (test code = 1759-0) 1.2 0.8-2.0 [facility] HospitalAlkaline Qxedhrdzrwu8216-41-47 16:35:00* Test Item Value Reference Range Interpretation Comments Alkaline Phosphatase (test code = 6768-6) 83 40-150 [facility] HospitalAmylase Dktns1085-34-10 16:35:00* Test Item Value Reference Range Interpretation Comments Amylase Level (test code = 1798-8) 108 25-125 [facility] HospitalLipase2019-02-18 16:35:00* Test Item Value Reference Range Interpretation Comments Lipase (test code = 3040-3) 74 8-78 [facility] Kiwqs2765-81-81 16:35:00* Test Item Value Reference Range Interpretation Comments Sodium Level (test code = 2951-2) 136 136-145 [facility] HospitalPotassium Luwit7159-98-20 16:35:00* Test Item Value Reference Range Interpretation Comments Potassium Level (test code = 2823-3) 3.6 3.5-5.1 [facility] HospitalChloride Ughrb2667-22-83 16:35:00* Test Item Value Reference Range Interpretation Comments Chloride Level (test code = 2075-0) 101 98-107 [facility] HospitalCarbon Dioxide Ccsrt5816-87-06 16:35:00* Test Item Value Reference Range Interpretation Comments Carbon Dioxide Level (test code = 2028-9) 23 22-29 [facility] HospitalAnion Azk6965-36-31 16:35:00* Test Item Value Reference Range Interpretation Comments Anion Gap (test code = 18888-2) 15.6 8-16 [facility] HospitalBlood Urea Ggnilxnv3815-31-44 16:35:00* Test Item Value Reference Range Interpretation Comments Blood Urea Nitrogen (test code = 3094-0) 19 7-26 [facility] HospitalCreatinine2019-02-18 16:35:00* Test Item Value Reference Range Interpretation Comments Creatinine (test code = 2160-0) 0.78 0.57-1.11 [facility] HospitalBUN/Creatinine Mgnxk5255-09-68 16:35:00* Test Item Value Reference Range Interpretation Comments BUN/Creatinine Ratio (test code = 3097-3) 24 6-25 [facility] HospitalEstimat Glomerular Filtration Rate 2018-07-26 16:35:00* Test Item Value Reference Range Interpretation Comments Estimat Glomerular Filtration Rate (test code = 720384729) > 60 >60 Ranges were taken from the National Kidney Disease Education Program and the [facility] Kid[facility] Foundation literature.Reference ranges:60 or greater: Gdhgpd29-26 ( for 3 consecutive months): Chronic kidney disease 15 or less: Kidney failureHouston Methodist West HospitalGlucose Lhxml4706-71-08 16:35:00* Test Item Value Reference Range Interpretation Comments Glucose Level (test code = FZE6137) 95 74-118 [facility] HospitalCalcium Sjgsp9426-72-82 16:35:00* Test Item Value Reference Range Interpretation Comments Calcium Level (test code = 91956-5) 9.6 8.4-10.2 [facility] HospitalTotal Nxgfyrkte2856-91-98 16:35:00* Test Item Value Reference Range Interpretation Comments Total Bilirubin (test code = 1975-2) 0.8 0.2-1.2 [facility] HospitalAspartate Amino Transf (AST/SGOT) 2018-07-26 16:35:00* Test Item Value Reference Range Interpretation Comments Aspartate Amino Transf (AST/SGOT) (test code = Aspartate Amino Transf (AST/SGOT)) 43 5-34 H [facility] HospitalAlanine Aminotransferase (ALT/SGPT) 2018-07-26 16:35:00* Test Item Value Reference Range Interpretation Comments Alanine Aminotransferase (ALT/SGPT) (test code = 1742-6) 59 0-55 H [facility] HospitalTotal Ctismpn6391-07-37 16:35:00* Test Item Value Reference Range Interpretation Comments Total Protein (test code = 2885-2) 8.1 6.5-8.1 [facility] HospitalAlbumin2019-02-18 16:35:00* Test Item Value Reference Range Interpretation Comments Albumin (test code = 1751-7) 4.4 3.5-5.0 [facility] HospitalGlobulin2019-02-18 16:35:00* Test Item Value Reference Range Interpretation Comments Globulin (test code = 68702-1) 3.7 2.3-3.5 H [facility] HospitalAlbumin/Globulin Rnogc6711-09-40 16:35:00 * Test Item Value Reference Range Interpretation Comments Albumin/Globulin Ratio (test code = 1759-0) 1.2 0.8-2.0 [facility] HospitalAlkaline Vtgplfbzfbj2646-75-77 16:35:00* Test Item Value Reference Range Interpretation Comments Alkaline Phosphatase (test code = 6768-6) 83 40-150 [facility] HospitalAmylase Pkvan0537-48-65 16:35:00* Test Item Value Reference Range Interpretation Comments Amylase Level (test code = 1798-8) 108 25-125 [facility] HospitalLipase2019-02-18 16:35:00* Test Item Value Reference Range Interpretation Comments Lipase (test code = 3040-3) 74 8-78 [facility] Centerodium Vxvoa3681-11-35 16:35:00* Test Item Value Reference Range Interpretation Comments Sodium Level (test code = 2951-2) 136 136-145 [facility] HospitalPotassium Ghnkg0651-95-01 16:35:00* Test Item Value Reference Range Interpretation Comments Potassium Level (test code = 2823-3) 3.6 3.5-5.1 [facility] HospitalChloride Bhosj7256-18-86 16:35:00* Test Item Value Reference Range Interpretation Comments Chloride Level (test code = 2075-0) 101 98-107 [facility] HospitalCarbon Dioxide Hhfqk6438-18-90 16:35:00* Test Item Value Reference Range Interpretation Comments Carbon Dioxide Level (test code = 2028-9) 23 22-29 [facility] HospitalAnion Pfa1046-03-91 16:35:00* Test Item Value Reference Range Interpretation Comments Anion Gap (test code = 22129-5) 15.6 8-16 [facility] HospitalBlood Urea Blhhfzmh5307-62-39 16:35:00* Test Item Value Reference Range Interpretation Comments Blood Urea Nitrogen (test code = 3094-0) 19 7-26 [facility] HospitalCreatinine2019-02-18 16:35:00* Test Item Value Reference Range Interpretation Comments Creatinine (test code = 2160-0) 0.78 0.57-1.11 [facility] HospitalBUN/Creatinine Vnwoi0461-06-80 16:35:00* Test Item Value Reference Range Interpretation Comments BUN/Creatinine Ratio (test code = 3097-3) 24 6-25 [facility] HospitalEstimat Glomerular Filtration Rate 2018-07-26 16:35:00* Test Item Value Reference Range Interpretation Comments Estimat Glomerular Filtration Rate (test code = 834997159) > 60 >60 Ranges were taken from the National Kidney Disease Education Program and the [facility] Kidney Foundation literature.Reference ranges:60 or greater: Vxquqv85-89 ( for 3 consecutive months): Chronic kidney disease 15 or less: Kidney failureHouston Methodist West HospitalGlucose Rhbmd5656-58-60 16:35:00* Test Item Value Reference Range Interpretation Comments Glucose Level (test code = QAM7494) 95 74-118 [facility] HospitalCalcium Reshi2607-86-69 16:35:00* Test Item Value Reference Range Interpretation Comments Calcium Level (test code = 66654-9) 9.6 8.4-10.2 [facility] HospitalTotal Qquozokey8773-63-73 16:35:00* Test Item Value Reference Range Interpretation Comments Total Bilirubin (test code = 1975-2) 0.8 0.2-1.2 [facility] HospitalAspartate Amino Transf (AST/SGOT) 2018-07-26 16:35:00* Test Item Value Reference Range Interpretation Comments Aspartate Amino Transf (AST/SGOT) (test code = Aspartate Amino Transf (AST/SGOT)) 43 5-34 H [facility] HospitalAlanine Aminotransferase (ALT/SGPT) 2018-07-26 16:35:00* Test Item Value Reference Range Interpretation Comments Alanine Aminotransferase (ALT/SGPT) (test code = 1742-6) 59 0-55 H [facility] HospitalTotal Myzmfub9667-74-70 16:35:00* Test Item Value Reference Range Interpretation Comments Total Protein (test code = 2885-2) 8.1 6.5-8.1 [facility] HospitalAlbumin2019-02-18 16:35:00* Test Item Value Reference Range Interpretation Comments Albumin (test code = 1751-7) 4.4 3.5-5.0 [facility] HospitalGlobulin2019-02-18 16:35:00* Test Item Value Reference Range Interpretation Comments Globulin (test code = 92446-4) 3.7 2.3-3.5 H [facility] HospitalAlbumin/Globulin Bjwim9346-20-53 16:35:00 * Test Item Value Reference Range Interpretation Comments Albumin/Globulin Ratio (test code = 1759-0) 1.2 0.8-2.0 [facility] HospitalAlkaline Mmebadhgmxm3037-15-74 16:35:00* Test Item Value Reference Range Interpretation Comments Alkaline Phosphatase (test code = 6768-6) 83 40-150 [facility] HospitalAmylase Yyudj6707-50-45 16:35:00* Test Item Value Reference Range Interpretation Comments Amylase Level (test code = 1798-8) 108 25-125 [facility] HospitalLipase2019-02-18 16:35:00* Test Item Value Reference Range Interpretation Comments Lipase (test code = 3040-3) 74 8-78 [facility] HospitalWhite Blood Dvckc8441-78-72 16:08:00* Test Item Value Reference Range Interpretation Comments White Blood Count (test code = 6690-2) 5.86 4.8-10.8 [facility] HospitalRed Blood Ivvgw4355-78-87 16:08:00* Test Item Value Reference Range Interpretation Comments Red Blood Count (test code = 789-8) 5.07 3.6-5.1 [facility] HospitalHemoglobin2019-02-18 16:08:00* Test Item Value Reference Range Interpretation Comments Hemoglobin (test code = 44059-1) 15.3 12.0-16.0 [facility] HospitalHematocrit2019-02-18 16:08:00* Test Item Value Reference Range Interpretation Comments Hematocrit (test code = 4544-3) 44.0 34.2-44.1 [facility] HospitalMean Corpuscular Wqxwuu6272-19-83 16:08:00* Test Item Value Reference Range Interpretation Comments Mean Corpuscular Volume (test code = 787-2) 86.8 81-99 [facility] HospitalMean Corpuscular Ebbdhdylxl4195-45-80 16:08:00* Test Item Value Reference Range Interpretation Comments Mean Corpuscular Hemoglobin (test code = 785-6) 30.2 28-32 [facility] HospitalMean Corpuscular Hemoglobin Concent 2018-07-26 16:08:00* Test Item Value Reference Range Interpretation Comments Mean Corpuscular Hemoglobin Concent (test code = 786-4) 34.8 31-35 [facility] HospitalRed Cell Distribution Ibfns2337-83-57 16:08:00* Test Item Value Reference Range Interpretation Comments Red Cell Distribution Width (test code = 73304-3) 13.2 11.7 -14.4 [facility] HospitalPlatelet Jcdrj0648-86-15 16:08:00* Test Item Value Reference Range Interpretation Comments Platelet Count (test code = 777-3) 233 140-360 [facility] HospitalNeutrophils (%) (Auto)2018-07-26 16:08:00 * Test Item Value Reference Range Interpretation Comments Neutrophils (%) (Auto) (test code = 84631-6) 73.1 38.7-80.0 [facility] HospitalLymphocytes (%) (Auto)2018-07-26 16:08:00 * Test Item Value Reference Range Interpretation Comments Lymphocytes (%) (Auto) (test code = 736-9) 18.9 18.0-39.1 [facility] HospitalMonocytes (%) (Auto)2018-07-26 16:08:00* Test Item Value Reference Range Interpretation Comments Monocytes (%) (Auto) (test code = 5905-5) 7.2 4.4-11.3 [facility] HospitalEosinophils (%) (Auto)2018-07-26 16:08:00 * Test Item Value Reference Range Interpretation Comments Eosinophils (%) (Auto) (test code = 713-8) 0.3 0.0-6.0 [facility] HospitalBasophils (%) (Auto)2018-07-26 16:08:00* Test Item Value Reference Range Interpretation Comments Basophils (%) (Auto) (test code = 706-2) 0.3 0.0-1.0 [facility] HospitalIM GRANULOCYTES %2018-07-26 16:08:00* Test Item Value Reference Range Interpretation Comments IM GRANULOCYTES % (test code = IM GRANULOCYTES %) 0.2 0.0- 1.0 [facility] HospitalNeutrophils # (Auto)2018-07-26 16:08:00* Test Item Value Reference Range Interpretation Comments Neutrophils # (Auto) (test code = 751-8) 4.3 2.1-6.9 [facility] HospitalLymphocytes # (Auto)2018-07-26 16:08:00* Test Item Value Reference Range Interpretation Comments Lymphocytes # (Auto) (test code = 44661-0) 1.1 1.0-3.2 [facility] HospitalMonocytes # (Auto)2018-07-26 16:08:00* Test Item Value Reference Range Interpretation Comments Monocytes # (Auto) (test code = 742-7) 0.4 0.2-0.8 [facility] HospitalEosinophils # (Auto)2018-07-26 16:08:00* Test Item Value Reference Range Interpretation Comments Eosinophils # (Auto) (test code = 711-2) 0.0 0.0-0.4 [facility] HospitalBasophils # (Auto)2018-07-26 16:08:00* Test Item Value Reference Range Interpretation Comments Basophils # (Auto) (test code = 704-7) 0.0 0.0-0.1 [facility] HospitalAbsolute Immature Granulocyte (auto 2018-07-26 16:08:00* Test Item Value Reference Range Interpretation Comments Absolute Immature Granulocyte (auto (liseth t code = Absolute Immature Granulocyte (auto) 0.01 0-0.1 [facility] HospitalWhite Blood Hjler7479-40-11 16:08:00* Test Item Value Reference Range Interpretation Comments White Blood Count (test code = 6690-2) 5.86 4.8-10.8 [facility] HospitalRed Blood Iouhn4674-23-19 16:08:00* Test Item Value Reference Range Interpretation Comments Red Blood Count (test code = 789-8) 5.07 3.6-5.1 [facility] HospitalHemoglobin2019-02-18 16:08:00* Test Item Value Reference Range Interpretation Comments Hemoglobin (test code = 68760-3) 15.3 12.0-16.0 [facility] HospitalHematocrit2019-02-18 16:08:00* Test Item Value Reference Range Interpretation Comments Hematocrit (test code = 4544-3) 44.0 34.2-44.1 [facility] HospitalMean Corpuscular Sjrmpx9869-20-70 16:08:00* Test Item Value Reference Range Interpretation Comments Mean Corpuscular Volume (test code = 787-2) 86.8 81-99 [facility] HospitalMean Corpuscular Mizffbgavu4596-04-32 16:08:00* Test Item Value Reference Range Interpretation Comments Mean Corpuscular Hemoglobin (test code = 785-6) 30.2 28-32 [facility] HospitalMean Corpuscular Hemoglobin Concent 2018-07-26 16:08:00* Test Item Value Reference Range Interpretation Comments Mean Corpuscular Hemoglobin Concent (test code = 786-4) 34.8 31-35 [facility] HospitalRed Cell Distribution Yuaqo9468-31-00 16:08:00* Test Item Value Reference Range Interpretation Comments Red Cell Distribution Width (test code = 20969-5) 13.2 11.7 -14.4 [facility] HospitalPlatelet Hzije7963-74-12 16:08:00* Test Item Value Reference Range Interpretation Comments Platelet Count (test code = 777-3) 233 140-360 [facility] HospitalNeutrophils (%) (Auto)2018-07-26 16:08:00 * Test Item Value Reference Range Interpretation Comments Neutrophils (%) (Auto) (test code = 68635-4) 73.1 38.7-80.0 [facility] HospitalLymphocytes (%) (Auto)2018-07-26 16:08:00 * Test Item Value Reference Range Interpretation Comments Lymphocytes (%) (Auto) (test code = 736-9) 18.9 18.0-39.1 [facility] HospitalMonocytes (%) (Auto)2018-07-26 16:08:00* Test Item Value Reference Range Interpretation Comments Monocytes (%) (Auto) (test code = 5905-5) 7.2 4.4-11.3 [facility] HospitalEosinophils (%) (Auto)2018-07-26 16:08:00 * Test Item Value Reference Range Interpretation Comments Eosinophils (%) (Auto) (test code = 713-8) 0.3 0.0-6.0 [facility] HospitalBasophils (%) (Auto)2018-07-26 16:08:00* Test Item Value Reference Range Interpretation Comments Basophils (%) (Auto) (test code = 706-2) 0.3 0.0-1.0 [facility] HospitalIM GRANULOCYTES %2018-07-26 16:08:00* Test Item Value Reference Range Interpretation Comments IM GRANULOCYTES % (test code = IM GRANULOCYTES %) 0.2 0.0- 1.0 [facility] HospitalNeutrophils # (Auto)2018-07-26 16:08:00* Test Item Value Reference Range Interpretation Comments Neutrophils # (Auto) (test code = 751-8) 4.3 2.1-6.9 [facility] HospitalLymphocytes # (Auto)2018-07-26 16:08:00* Test Item Value Reference Range Interpretation Comments Lymphocytes # (Auto) (test code = 98446-9) 1.1 1.0-3.2 [facility] HospitalMonocytes # (Auto)2018-07-26 16:08:00* Test Item Value Reference Range Interpretation Comments Monocytes # (Auto) (test code = 742-7) 0.4 0.2-0.8 [facility] HospitalEosinophils # (Auto)2018-07-26 16:08:00* Test Item Value Reference Range Interpretation Comments Eosinophils # (Auto) (test code = 711-2) 0.0 0.0-0.4 [facility] HospitalBasophils # (Auto)2018-07-26 16:08:00* Test Item Value Reference Range Interpretation Comments Basophils # (Auto) (test code = 704-7) 0.0 0.0-0.1 [facility] HospitalAbsolute Immature Granulocyte (auto 2018-07-26 16:08:00* Test Item Value Reference Range Interpretation Comments Absolute Immature Granulocyte (auto (liseth t code = Absolute Immature Granulocyte (auto) 0.01 0-0.1 [facility] HospitalWhite Blood Xuzqh1949-83-32 16:08:00* Test Item Value Reference Range Interpretation Comments White Blood Count (test code = 6690-2) 5.86 4.8-10.8 [facility] HospitalRed Blood Nezyz4981-00-03 16:08:00* Test Item Value Reference Range Interpretation Comments Red Blood Count (test code = 789-8) 5.07 3.6-5.1 [facility] HospitalHemoglobin2019-02-18 16:08:00* Test Item Value Reference Range Interpretation Comments Hemoglobin (test code = 02886-7) 15.3 12.0-16.0 [facility] HospitalHematocrit2019-02-18 16:08:00* Test Item Value Reference Range Interpretation Comments Hematocrit (test code = 4544-3) 44.0 34.2-44.1 [facility] HospitalMean Corpuscular Dlfrdz3637-51-93 16:08:00* Test Item Value Reference Range Interpretation Comments Mean Corpuscular Volume (test code = 787-2) 86.8 81-99 [facility] HospitalMean Corpuscular Ukymilnejy6750-51-29 16:08:00* Test Item Value Reference Range Interpretation Comments Mean Corpuscular Hemoglobin (test code = 785-6) 30.2 28-32 [facility] HospitalMean Corpuscular Hemoglobin Concent 2018-07-26 16:08:00* Test Item Value Reference Range Interpretation Comments Mean Corpuscular Hemoglobin Concent (test code = 786-4) 34.8 31-35 [facility] HospitalRed Cell Distribution Acgos0317-43-07 16:08:00* Test Item Value Reference Range Interpretation Comments Red Cell Distribution Width (test code = 71724-6) 13.2 11.7 -14.4 [facility] HospitalPlatelet Exdyh3917-33-65 16:08:00* Test Item Value Reference Range Interpretation Comments Platelet Count (test code = 777-3) 233 140-360 [facility] HospitalNeutrophils (%) (Auto)2018-07-26 16:08:00 * Test Item Value Reference Range Interpretation Comments Neutrophils (%) (Auto) (test code = 10340-9) 73.1 38.7-80.0 [facility] HospitalLymphocytes (%) (Auto)2018-07-26 16:08:00 * Test Item Value Reference Range Interpretation Comments Lymphocytes (%) (Auto) (test code = 736-9) 18.9 18.0-39.1 [facility] HospitalMonocytes (%) (Auto)2018-07-26 16:08:00* Test Item Value Reference Range Interpretation Comments Monocytes (%) (Auto) (test code = 5905-5) 7.2 4.4-11.3 [facility] HospitalEosinophils (%) (Auto)2018-07-26 16:08:00 * Test Item Value Reference Range Interpretation Comments Eosinophils (%) (Auto) (test code = 713-8) 0.3 0.0-6.0 [facility] HospitalBasophils (%) (Auto)2018-07-26 16:08:00* Test Item Value Reference Range Interpretation Comments Basophils (%) (Auto) (test code = 706-2) 0.3 0.0-1.0 [facility] HospitalIM GRANULOCYTES %2018-07-26 16:08:00* Test Item Value Reference Range Interpretation Comments IM GRANULOCYTES % (test code = IM GRANULOCYTES %) 0.2 0.0- 1.0 [facility] HospitalNeutrophils # (Auto)2018-07-26 16:08:00* Test Item Value Reference Range Interpretation Comments Neutrophils # (Auto) (test code = 751-8) 4.3 2.1-6.9 [facility] HospitalLymphocytes # (Auto)2018-07-26 16:08:00* Test Item Value Reference Range Interpretation Comments Lymphocytes # (Auto) (test code = 15349-0) 1.1 1.0-3.2 [facility] HospitalMonocytes # (Auto)2018-07-26 16:08:00* Test Item Value Reference Range Interpretation Comments Monocytes # (Auto) (test code = 742-7) 0.4 0.2-0.8 [facility] HospitalEosinophils # (Auto)2018-07-26 16:08:00* Test Item Value Reference Range Interpretation Comments Eosinophils # (Auto) (test code = 711-2) 0.0 0.0-0.4 [facility] HospitalBasophils # (Auto)2018-07-26 16:08:00* Test Item Value Reference Range Interpretation Comments Basophils # (Auto) (test code = 704-7) 0.0 0.0-0.1 [facility] HospitalAbsolute Immature Granulocyte (auto 2018-07-26 16:08:00* Test Item Value Reference Range Interpretation Comments Absolute Immature Granulocyte (auto (liseth t code = Absolute Immature Granulocyte (auto) 0.01 0-0.1 [facility] HospitalUrine Mmdq4615-15-27 14:29:00* Test Item Value Reference Range Interpretation Comments Urine Test (test code = 2106-3) NEGATIVE NEGATIVE [facility] HospitalUrine Pvjb0363-77-98 14:29:00* Test Item Value Reference Range Interpretation Comments Urine Test (test code = 2106-3) NEGATIVE NEGATIVE [facility] HospitalUrine Sqcb0715-31-12 14:29:00* Test Item Value Reference Range Interpretation Comments Urine Test (test code = 2106-3) NEGATIVE NEGATIVE [facility] HospitalUrine WAC2325-97-71 13:42:00* Test Item Value Reference Range Interpretation Comments Urine WBC (test code = 5821-4) NONE 0-5 [facility] BLI4828-69-74 13:42:00* Test Item Value Reference Range Interpretation Comments Urine RBC (test code = 23817-3) NONE 0-5 [facility] Kbstcsxu7447-39-43 13:42:00* Test Item Value Reference Range Interpretation Comments Urine Bacteria (test code = 62077-2) MANY NONE H [facility] Epithelial Hmpdt3031-38-76 13:42:00 * Test Item Value Reference Range Interpretation Comments Urine Epithelial Cells (test code = 85620-9) NONE NONE [facility] Amorphous Kecvwbmc5140-36-27 13:42:00* Test Item Value Reference Range Interpretation Comments Urine Amorphous Sediment (test code = 8246-1) MODERATE FEW H [facility] HML6580-57-37 13:42:00* Test Item Value Reference Range Interpretation Comments Urine WBC (test code = 5821-4) NONE 0-5 [facility] YGX6867-29-26 13:42:00* Test Item Value Reference Range Interpretation Comments Urine RBC (test code = 38481-5) NONE 0-5 [facility] Jgitihdx8384-62-03 13:42:00* Test Item Value Reference Range Interpretation Comments Urine Bacteria (test code = 41726-2) MANY NONE H [facility] Epithelial Cvcct7064-54-67 13:42:00 * Test Item Value Reference Range Interpretation Comments Urine Epithelial Cells (test code = 40099-4) NONE NONE [facility] Amorphous Lpxeegpj9220-21-85 13:42:00* Test Item Value Reference Range Interpretation Comments Urine Amorphous Sediment (test code = 8246-1) MODERATE FEW H [facility] BYD2727-50-44 13:42:00* Test Item Value Reference Range Interpretation Comments Urine WBC (test code = 5821-4) NONE 0-5 [facility] JJB6609-80-18 13:42:00* Test Item Value Reference Range Interpretation Comments Urine RBC (test code = 34426-7) NONE 0-5 [facility] HospitalUrine Zpbxoica0503-03-42 13:42:00* Test Item Value Reference Range Interpretation Comments Urine Bacteria (test code = 71976-8) MANY NONE H [facility] HospitalUrine Epithelial Mvuzx1160-46-88 13:42:00 * Test Item Value Reference Range Interpretation Comments Urine Epithelial Cells (test code = 09477-8) NONE NONE [facility] HospitalUrine Amorphous Immadygp9273-46-52 13:42:00* Test Item Value Reference Range Interpretation Comments Urine Amorphous Sediment (test code = 8246-1) MODERATE FEW H [facility] HospitalUrine Uyeir6233-56-31 13:27:00* Test Item Value Reference Range Interpretation Comments Urine Color (test code = 5778-6) YELLOW YELLOW [facility] HospitalUrine Jdmssqh3280-97-19 13:27:00* Test Item Value Reference Range Interpretation Comments Urine Clarity (test code = 89326-5) SL CLOUDY CLEAR [facility] HospitalUrine Specific Psheoem9206-47-09 13:27:00 * Test Item Value Reference Range Interpretation Comments Urine Specific [place] (test code = 5811-5) 1.030 1.010-1.02 5 H [facility] HospitalUrine eL6831-11-31 13:27:00* Test Item Value Reference Range Interpretation Comments Urine pH (test code = 58874-7) 6 5-7 [facility] HospitalUrine Leukocyte Okfbcwqy9969-03-78 13:27:00* Test Item Value Reference Range Interpretation Comments Urine Leukocyte Esterase (test code = 5799-2) NEGATIVE NEGATIVE [facility] HospitalUrine Laxogdo4253-16-99 13:27:00* Test Item Value Reference Range Interpretation Comments Urine Nitrite (test code = 60613-4) NEGATIVE NEGATIVE [facility] HospitalUrine Elaawth0818-71-99 13:27:00* Test Item Value Reference Range Interpretation Comments Urine Protein (test code = 5804-0) 1+ NEGATIVE H [facility] HospitalUrine Glucose (UA)2018-07-26 13:27:00* Test Item Value Reference Range Interpretation Comments Urine Glucose (UA) (test code = 2349-9) NEGATIVE NEGATIVE [facility] HospitalUrine Tqsfcwx5460-23-80 13:27:00* Test Item Value Reference Range Interpretation Comments Urine Ketones (test code = 82704-0) NEGATIVE NEGATIVE [facility] HospitalUrine Mlvhvnhozrse8320-06-66 13:27:00* Test Item Value Reference Range Interpretation Comments Urine Urobilinogen (test code = 19500-4) 0.2 0.2-1 [facility] HospitalUrine Yjwynlcau1788-27-79 13:27:00* Test Item Value Reference Range Interpretation Comments Urine Bilirubin (test code = 1978-6) NEGATIVE NEGATIVE [facility] Wnjgp1669-34-43 13:27:00* Test Item Value Reference Range Interpretation Comments Urine Blood (test code = 40568-8) NEGATIVE NEGATIVE [facility] HospitalUrine Vzbvk6392-18-20 13:27:00* Test Item Value Reference Range Interpretation Comments Urine Color (test code = 5778-6) YELLOW YELLOW [facility] HospitalUrine Ytudrzc7871-78-02 13:27:00* Test Item Value Reference Range Interpretation Comments Urine Clarity (test code = 26371-6) SL CLOUDY CLEAR [facility] HospitalUrine Specific Depwrdk6303-25-89 13:27:00 * Test Item Value Reference Range Interpretation Comments Urine Specific [place] (test code = 5811-5) 1.030 1.010-1.02 5 H [facility] HospitalUrine rB8415-38-51 13:27:00* Test Item Value Reference Range Interpretation Comments Urine pH (test code = 14884-3) 6 5-7 [facility] HospitalUrine Leukocyte Ehzzmrno2900-29-20 13:27:00* Test Item Value Reference Range Interpretation Comments Urine Leukocyte Esterase (test code = 5799-2) NEGATIVE NEGATIVE [facility] HospitalUrine Zduxqem5026-48-89 13:27:00* Test Item Value Reference Range Interpretation Comments Urine Nitrite (test code = 02701-0) NEGATIVE NEGATIVE [facility] HospitalUrine Tfcjksw3399-57-10 13:27:00* Test Item Value Reference Range Interpretation Comments Urine Protein (test code = 5804-0) 1+ NEGATIVE H [facility] HospitalUrine Glucose (UA)2018-07-26 13:27:00* Test Item Value Reference Range Interpretation Comments Urine Glucose (UA) (test code = 2349-9) NEGATIVE NEGATIVE [facility] HospitalUrine Ydaisgi2756-02-55 13:27:00* Test Item Value Reference Range Interpretation Comments Urine Ketones (test code = 45299-3) NEGATIVE NEGATIVE [facility] Hlbtkhysgjbf2118-53-13 13:27:00* Test Item Value Reference Range Interpretation Comments Urine Urobilinogen (test code = 62250-5) 0.2 0.2-1 [facility] Bifsgxdes9249-52-12 13:27:00* Test Item Value Reference Range Interpretation Comments Urine Bilirubin (test code = 1978-6) NEGATIVE NEGATIVE [facility] Opuim9631-41-16 13:27:00* Test Item Value Reference Range Interpretation Comments Urine Blood (test code = 57987-1) NEGATIVE NEGATIVE [facility] HospitalUrine Bmugv3412-12-86 13:27:00* Test Item Value Reference Range Interpretation Comments Urine Color (test code = 5778-6) YELLOW YELLOW [facility] Ovkenfy5928-38-83 13:27:00* Test Item Value Reference Range Interpretation Comments Urine Clarity (test code = 60767-3) SL CLOUDY CLEAR [facility] HospitalUrine Specific Joxnara6021-15-54 13:27:00 * Test Item Value Reference Range Interpretation Comments Urine Specific [place] (test code = 5811-5) 1.030 1.010-1.02 5 H [facility] HospitalUrine xA1546-59-15 13:27:00* Test Item Value Reference Range Interpretation Comments Urine pH (test code = 20174-4) 6 5-7 [facility] HospitalUrine Leukocyte Pbusctjr9198-34-22 13:27:00* Test Item Value Reference Range Interpretation Comments Urine Leukocyte Esterase (test code = 5799-2) NEGATIVE NEGATIVE [facility] HospitalUrine Ukzkrmm5373-04-42 13:27:00* Test Item Value Reference Range Interpretation Comments Urine Nitrite (test code = 34238-5) NEGATIVE NEGATIVE [facility] HospitalUrine Gcqlrbs1054-00-02 13:27:00* Test Item Value Reference Range Interpretation Comments Urine Protein (test code = 5804-0) 1+ NEGATIVE H [facility] HospitalUrine Glucose (UA)2018-07-26 13:27:00* Test Item Value Reference Range Interpretation Comments Urine Glucose (UA) (test code = 2349-9) NEGATIVE NEGATIVE [facility] HospitalUrine Olipfvs6553-78-87 13:27:00* Test Item Value Reference Range Interpretation Comments Urine Ketones (test code = 55703-0) NEGATIVE NEGATIVE [facility] Bmlmawpdkbwx8508-48-34 13:27:00* Test Item Value Reference Range Interpretation Comments Urine Urobilinogen (test code = 63074-5) 0.2 0.2-1 [facility] HospitalUrine Aptncvjsk5654-29-77 13:27:00* Test Item Value Reference Range Interpretation Comments Urine Bilirubin (test code = 1978-6) NEGATIVE NEGATIVE [facility] HospitalUrine Ombyd1152-27-05 13:27:00* Test Item Value Reference Range Interpretation Comments Urine Blood (test code = 92902-5) NEGATIVE NEGATIVE [facility] HospitalHepatigib[facility] A IgM Gabmtdyl4986-35-54 09:53:00* Test Item Value Reference Range Interpretation Comments Hepatitis A IgM Antibody (test code = 87488-7) Negative [facility] B Surface Lhcniwq4306-60-17 09:53:00* Test Item Value Reference Range Interpretation Comments Hepatitis B Surface Antigen (test code = 5196-1) Negative [facility] B Core IgM Rvbphkod7274-23-94 09:53:00* Test Item Value Reference Range Interpretation Comments Hepatitis B Core IgM Antibody (test code = 92703-0) Negative [facility] HospitalHepatigib[facility] C Vlzmpsft7492-37-60 09:53:00* Test Item Value Reference Range Interpretation Comments Hepatitis C Antibody (test code = 96834-6) 0.1 Reference Range: 0.0 - 0.9 s/co ratioNegative: < 0.8Indeterminate: 0.8 - 0.9Positive: > 0.9The CDC recommends that a positive HCV antibody resultbe followed up with a HCV Nucleic Acid Amplificationtest (301588).[facility] [address] [place] [address]Xyp: Oleg Hernandes MDFor inquiries, the physician may contact Branch: [phone] Lab: [phone] [facility] HospitalHecommunity [facility] A IgM Ekttuvxm8569-19-58 09:53:00* Test Item Value Reference Range Interpretation Comments Hepatitis A IgM Antibody (test code = 54534-0) Negative [facility] B Surface Joufrls7968-57-04 09:53:00* Test Item Value Reference Range Interpretation Comments Hepatitis B Surface Antigen (test code = 5196-1) Negative [facility] B Core IgM Ldpcjotd2833-55-70 09:53:00* Test Item Value Reference Range Interpretation Comments Hepatitis B Core IgM Antibody (test code = 90537-9) Negative [facility] C Spymdekv7435-82-74 09:53:00* Test Item Value Reference Range Interpretation Comments Hepatitis C Antibody (test code = 28239-9) 0.1 Reference Range: 0.0 - 0.9 s/co ratioNegative: < 0.8Indeterminate: 0.8 - 0.9Positive: > 0.9The CDC recommends that a positive HCV antibody resultbe followed up with a HCV Nucleic Acid Amplificationtest (468411).[facility] [address] [place] [address]Ukw: Oleg Hernandes MDFor inquiries, the physician may contact Branch: [phone] Lab: [phone][facility]2018-05-16 07:42:00* Test Item Value Reference Range Interpretation Comments Sodium Level (test code = 2951-2) 136 136-145 [facility] HospitalPotassium Zscvs0437-37-45 07:42:00* Test Item Value Reference Range Interpretation Comments Potassium Level (test code = 2823-3) 4.2 3.5-5.1 [facility] HospitalChloride Tmedb9921-10-61 07:42:00* Test Item Value Reference Range Interpretation Comments Chloride Level (test code = 2075-0) 105 98-107 [facility] HospitalAnion Ldv1806-62-11 07:42:00* Test Item Value Reference Range Interpretation Comments Anion Gap (test code = 36788-9) 9.2 8-16 [facility] HospitalCarbon Dioxide Wmejq7186-03-31 07:26:00* Test Item Value Reference Range Interpretation Comments Carbon Dioxide Level (test code = 2028-9) 26 22-29 [facility] HospitalBlood Urea Spaxpiqo4098-08-11 07:26:00* Test Item Value Reference Range Interpretation Comments Blood Urea Nitrogen (test code = 3094-0) 6 7-26 L [facility] HospitalCreatinine2018-05-16 07:26:00* Test Item Value Reference Range Interpretation Comments Creatinine (test code = 2160-0) 0.74 0.57-1.11 [facility] HospitalBUN/Creatinine Hlamy2612-21-07 07:26:00* Test Item Value Reference Range Interpretation Comments BUN/Creatinine Ratio (test code = 3097-3) 8 6-25 [facility] HospitalEstimat Glomerular Filtration Rate 2017-10-21 07:26:00* Test Item Value Reference Range Interpretation Comments Estimat Glomerular Filtration Rate (test code = 58339-1) 60- >60 Ranges were taken from the National Kidney Disease Education Program and the [employer] literature.Reference ranges:60 or greater: Chctvi51-60 ( for 3 consecutive months): Chronic kidney disease 15 or less: Kidney failureHouston Methodist West HospitalGlucose Kemna1746-37-85 07:26:00* Test Item Value Reference Range Interpretation Comments Glucose Level (test code = FTU8496) 93 74-118 [facility] HospitalCalcium Lhakc4065-03-27 07:26:00* Test Item Value Reference Range Interpretation Comments Calcium Level (test code = 56284-2) 9.1 8.4-10.2 [facility] HospitalLipase2018-05-16 07:26:00* Test Item Value Reference Range Interpretation Comments Lipase (test code = 3040-3) 76 8-78 [facility] HospitalWhite Blood Gfbuz5447-77-75 07:05:00* Test Item Value Reference Range Interpretation Comments White Blood Count (test code = 6690-2) 5.49 4.8-10.8 [facility] HospitalRed Blood Ndoye6948-08-43 07:05:00* Test Item Value Reference Range Interpretation Comments Red Blood Count (test code = 789-8) 4.25 3.6-5.1 [facility] HospitalHemoglobin2018-05-16 07:05:00* Test Item Value Reference Range Interpretation Comments Hemoglobin (test code = 53772-7) 12.7 12.0-16.0 [facility] HospitalHematocrit2018-05-16 07:05:00* Test Item Value Reference Range Interpretation Comments Hematocrit (test code = 4544-3) 37.1 34.2-44.1 [facility] HospitalMean Corpuscular Ooibfb5200-78-25 07:05:00* Test Item Value Reference Range Interpretation Comments Mean Corpuscular Volume (test code = 787-2) 87.3 81-99 [facility] HospitalMean Corpuscular Rmtesldsxb5191-80-83 07:05:00* Test Item Value Reference Range Interpretation Comments Mean Corpuscular Hemoglobin (test code = 785-6) 29.9 28-32 [facility] HospitalMean Corpuscular Hemoglobin Concent 2017-10-21 07:05:00* Test Item Value Reference Range Interpretation Comments Mean Corpuscular Hemoglobin Concent (test code = 786-4) 34.2 31-35 [facility] HospitalRed Cell Distribution Zvobr2931-21-97 07:05:00* Test Item Value Reference Range Interpretation Comments Red Cell Distribution Width (test code = 19296-3) 14.1 11.7 -14.4 [facility] HospitalPlatelet Dxzfn2794-38-28 07:05:00* Test Item Value Reference Range Interpretation Comments Platelet Count (test code = 777-3) 175 140-360 [facility] HospitalNeutrophils (%) (Auto)2017-10-21 07:05:00 * Test Item Value Reference Range Interpretation Comments Neutrophils (%) (Auto) (test code = 11033-0) 65.5 38.7-80.0 [facility] HospitalLymphocytes (%) (Auto)2017-10-21 07:05:00 * Test Item Value Reference Range Interpretation Comments Lymphocytes (%) (Auto) (test code = 736-9) 23.0 18.0-39.1 [facility] HospitalMonocytes (%) (Auto)2017-10-21 07:05:00* Test Item Value Reference Range Interpretation Comments Monocytes (%) (Auto) (test code = 5905-5) 8.4 4.4-11.3 [facility] HospitalEosinophils (%) (Auto)2017-10-21 07:05:00 * Test Item Value Reference Range Interpretation Comments Eosinophils (%) (Auto) (test code = 713-8) 2.4 0.0-6.0 [facility] HospitalBasophils (%) (Auto)2017-10-21 07:05:00* Test Item Value Reference Range Interpretation Comments Basophils (%) (Auto) (test code = 706-2) 0.5 0.0-1.0 [facility] HospitalIM GRANULOCYTES %2017-10-21 07:05:00* Test Item Value Reference Range Interpretation Comments IM GRANULOCYTES % (test code = IM GRANULOCYTES %) 0.2 0.0- 1.0 [facility] HospitalNeutrophils # (Auto)2017-10-21 07:05:00* Test Item Value Reference Range Interpretation Comments Neutrophils # (Auto) (test code = 751-8) 3.6 2.1-6.9 [facility] HospitalLymphocytes # (Auto)2017-10-21 07:05:00* Test Item Value Reference Range Interpretation Comments Lymphocytes # (Auto) (test code = 56622-0) 1.3 1.0-3.2 [facility] HospitalMonocytes # (Auto)2017-10-21 07:05:00* Test Item Value Reference Range Interpretation Comments Monocytes # (Auto) (test code = 742-7) 0.5 0.2-0.8 [facility] HospitalEosinophils # (Auto)2017-10-21 07:05:00* Test Item Value Reference Range Interpretation Comments Eosinophils # (Auto) (test code = 711-2) 0.1 0.0-0.4 [facility] HospitalBasophils # (Auto)2017-10-21 07:05:00* Test Item Value Reference Range Interpretation Comments Basophils # (Auto) (test code = 704-7) 0.0 0.0-0.1 [facility] HospitalAbsolute Immature Granulocyte (auto 2017-10-21 07:05:00* Test Item Value Reference Range Interpretation Comments Absolute Immature Granulocyte (auto (liseth t code = Absolute Immature Granulocyte (auto) 0.01 0-0.1 [facility] HospitalTotal Ywshgybvz6372-81-49 07:55:00* Test Item Value Reference Range Interpretation Comments Total Bilirubin (test code = 1975-2) 0.6 0.2-1.2 [facility] HospitalAspartate Amino Transf (AST/SGOT) 2017-10-20 07:55:00* Test Item Value Reference Range Interpretation Comments Aspartate Amino Transf (AST/SGOT) (test code = Aspartate Amino Transf (AST/SGOT)) 34 5-34 [facility] HospitalAlanine Aminotransferase (ALT/SGPT) 2017-10-20 07:55:00* Test Item Value Reference Range Interpretation Comments Alanine Aminotransferase (ALT/SGPT) (test code = 1742-6) 43 0-55 [facility] HospitalTotal Eouiggx8959-64-65 07:55:00* Test Item Value Reference Range Interpretation Comments Total Protein (test code = 2885-2) 6.3 6.5-8.1 L [facility] HospitalAlbumin2018-05-15 07:55:00* Test Item Value Reference Range Interpretation Comments Albumin (test code = 1751-7) 3.1 3.5-5.0 L [facility] HospitalGlobulin2018-05-15 07:55:00* Test Item Value Reference Range Interpretation Comments Globulin (test code = 49490-9) 3.2 2.3-3.5 [facility] HospitalAlbumin/Globulin Uozrp2583-73-15 07:55:00 * Test Item Value Reference Range Interpretation Comments Albumin/Globulin Ratio (test code = 1759-0) 1.0 0.8-2.0 [facility] HospitalAlkaline Ewqiblwseqy9196-75-52 07:55:00* Test Item Value Reference Range Interpretation Comments Alkaline Phosphatase (test code = 6768-6) 68 40-150 [facility] HospitalAmylase Vlnon8956-19-97 07:55:00* Test Item Value Reference Range Interpretation Comments Amylase Level (test code = 1798-8) 460 25-125 H [facility] Xzhlj9956-97-51 05:15:00* Test Item Value Reference Range Interpretation Comments Triglycerides Level (test code = 2571-8) 64 0-149 [facility]Cholesterol Cplba0084-45-24 05:15:00* Test Item Value Reference Range Interpretation Comments Cholesterol Level (test code = 2093-3) 181 0-199 Less than 200 mg/dL Low Dani193 - 239 mg/dL Borderline Cuxx065 m g/dl and greater High Risk [facility] HospitalLDL Texidlyqsfo8906-61-05 05:15:00* Test Item Value Reference Range Interpretation Comments LDL Cholesterol (test code = 2089-1) 100 60-130 [facility]HDL Zczuyfahdlq4103-10-18 05:15:00* Test Item Value Reference Range Interpretation Comments HDL Cholesterol (test code = 2085-9) 68 40-60 H [facility]Ch[facility]/HDL Cvcbw6218-84-58 05:15:00 * Test Item Value Reference Range Interpretation Comments Cholesterol/HDL Ratio (test code = 9830-1) 2.7 3.0-3.6 L [facility] HospitalTriglycerides Bxwgm5773-14-75 05:15:00* Test Item Value Reference Range Interpretation Comments Triglycerides Level (test code = 2571-8) 64 0-149 [facility]Cholesterol Qnzan2651-92-40 05:15:00* Test Item Value Reference Range Interpretation Comments Cholesterol Level (test code = 2093-3) 181 0-199 Less than 200 mg/dL Low Nooy109 - 239 mg/dL Borderline Hqre916 m g/dl and greater High Risk [facility] HospitalLDL Dbyclymrlli8814-88-67 05:15:00* Test Item Value Reference Range Interpretation Comments LDL Cholesterol (test code = 2089-1) 100 60-130 [facility]HDL Tpbjfrrfplq2076-93-25 05:15:00* Test Item Value Reference Range Interpretation Comments HDL Cholesterol (test code = 2085-9) 68 40-60 H [facility]Ch[facility]/HDL Yxbbc7611-48-37 05:15:00 * Test Item Value Reference Range Interpretation Comments Cholesterol/HDL Ratio (test code = 9830-1) 2.7 3.0-3.6 L [facility] HospitalCreatine Kinase CI1644-86-84 04:19:00* Test Item Value Reference Range Interpretation Comments Creatine Kinase MB (test code = 02713-9) 1.20 0-5.0 [facility] HospitalTroponin P5345-45-11 04:19:00* Test Item Value Reference Range Interpretation Comments Troponin I (test code = ECZ6426) -0.001 0-0.300 [facility] HospitalCreatine Kinase IY5023-28-18 04:19:00* Test Item Value Reference Range Interpretation Comments Creatine Kinase MB (test code = 61519-1) 1.20 0-5.0 [facility] HospitalTroponin J7519-01-95 04:19:00* Test Item Value Reference Range Interpretation Comments Troponin I (test code = BLS7143) < 0.001 0-0.300 [facility] HospitalProthrombin Sdsf5887-49-65 04:08:00* Test Item Value Reference Range Interpretation Comments Prothrombin Time (test code = 5902-2) 13.0 11.9-14.5 [facility] HospitalProthromb Time International Ratio 2017-10-19 04:08:00* Test Item Value Reference Range Interpretation Comments Prothromb Time International Ratio (test code = 6301-6) 1.06 Oral Anticoagulant Therapy INR Values:1. Low Intensity Therapy 1.5 - 2.02 . Moderate Intensity Therapy 2.0 - 3.03. High Intensity Therapy(1) 2.5 - 3. 54. High Intensity Therapy(2) 3.0 - 4.05. Panic Value INR > 5.0 [facility] HospitalActivated Partial Thromboplast Time 2017-10-19 04:08:00* Test Item Value Reference Range Interpretation Comments Activated Partial Thromboplast Time (test code = 56719-7) 26.5 23.8-35.5 [facility] HospitalProthrombin Qijh3506-78-63 04:08:00* Test Item Value Reference Range Interpretation Comments Prothrombin Time (test code = 5902-2) 13.0 11.9-14.5 [facility] HospitalProthromb Time International Ratio 2017-10-19 04:08:00* Test Item Value Reference Range Interpretation Comments Prothromb Time International Ratio (test code = 6301-6) 1.06 Oral Anticoagulant Therapy INR Values:1. Low Intensity Therapy 1.5 - 2.02 . Moderate Intensity Therapy 2.0 - 3.03. High Intensity Therapy(1) 2.5 - 3. 54. High Intensity Therapy(2) 3.0 - 4.05. Panic Value INR > 5.0 [facility] HospitalActivated Partial Thromboplast Time 2017-10-19 04:08:00* Test Item Value Reference Range Interpretation Comments Activated Partial Thromboplast Time (test code = 73573-6) 26.5 23.8-35.5 [facility] HospitalMagnesium Jyfhp9793-08-19 04:07:00* Test Item Value Reference Range Interpretation Comments Magnesium Level (test code = 31184-2) 2.0 1.3-2.1 [facility] HospitalCreatine Benlkc7067-06-32 04:07:00* Test Item Value Reference Range Interpretation Comments Creatine Kinase (test code = 2157-6) 123 29-168 [facility] HospitalCreatine Lhfozl8536-30-39 04:07:00* Test Item Value Reference Range Interpretation Comments Creatine Kinase (test code = 2157-6) 123 29-168 [facility] HospitalUrine SEP0121-00-48 04:01:00* Test Item Value Reference Range Interpretation Comments Urine WBC (test code = 5821-4) 6-10 0-5 H [facility] HospitalUrine KAR4752-36-99 04:01:00* Test Item Value Reference Range Interpretation Comments Urine RBC (test code = 90252-3) 50- 0-5 H [facility] HospitalU[facility] Cymmurql4137-35-00 04:01:00* Test Item Value Reference Range Interpretation Comments Urine Bacteria (test code = 41415-8) FEW NONE [facility] HospitalUrine Epithelial Ppsou3850-81-23 04:01:00 * Test Item Value Reference Range Interpretation Comments Urine Epithelial Cells (test code = 04798-2) FEW NONE [facility] HospitalUrine Lkijq5436-36-78 03:49:00* Test Item Value Reference Range Interpretation Comments Urine Color (test code = 5778-6) RED YELLOW H [facility] HospitalUrine Zzvqfnh7492-43-98 03:49:00* Test Item Value Reference Range Interpretation Comments Urine Clarity (test code = 42068-2) CLOUDY CLEAR H [facility] HospitalUrine Specific Gbwmufc6990-36-57 03:49:00 * Test Item Value Reference Range Interpretation Comments Urine Specific [place] (test code = 5811-5) 1.020 1.010-1.02 5 [facility] HospitalUrine oF0733-94-82 03:49:00* Test Item Value Reference Range Interpretation Comments Urine pH (test code = 77615-2) 8 5-7 H [facility] HospitalU[facility] Leukocyte Usqsixwt0513-78-06 03:49:00* Test Item Value Reference Range Interpretation Comments Urine Leukocyte Esterase (test code = 5799-2) TRACE NEGATIVE H [facility] HospitalUrine Ftrpzal9184-31-43 03:49:00* Test Item Value Reference Range Interpretation Comments Urine Nitrite (test code = 15647-7) NEGATIVE NEGATIVE [facility] HospitalUrine Xjupxrl1362-89-02 03:49:00* Test Item Value Reference Range Interpretation Comments Urine Protein (test code = 5804-0) 3+ NEGATIVE H [facility] HospitalUrine Glucose (UA)2017-10-19 03:49:00* Test Item Value Reference Range Interpretation Comments Urine Glucose (UA) (test code = 2349-9) NEGATIVE NEGATIVE [facility] HospitalUrine Feqvnnl5669-10-13 03:49:00* Test Item Value Reference Range Interpretation Comments Urine Ketones (test code = 63157-6) NEGATIVE NEGATIVE [facility] HospitalUrine Kcyybqhtppgr2532-39-09 03:49:00* Test Item Value Reference Range Interpretation Comments Urine Urobilinogen (test code = 23056-9) 4 0.2-1 H [facility] HospitalUrine Ihellhafq4111-83-57 03:49:00* Test Item Value Reference Range Interpretation Comments Urine Bilirubin (test code = 1978-6) 1+ NEGATIVE H [facility] HospitalU[facility] Vozvv4733-31-72 03:49:00* Test Item Value Reference Range Interpretation Comments Urine Blood (test code = 31075-0) 4+ NEGATIVE H [facility] HospitalUrine Reai7544-39-55 03:48:00* Test Item Value Reference Range Interpretation Comments Urine Test (test code = 2106-3) NEGATIVE NEGATIVE [facility] HospitalUS GALLBLADDER [facility] [address] [place] [address] Patient Name: REKHA CASTILLO MR #: [id number] : 1990 Age/Sex: 27/F Req #: [id number] Adm Physician: DARA JACKMAN MD Ordered by: SANKET ROSA MD Report #: [id number] Location: [facility] Room/Bed: ERHOLD-7 Procedure: [id number] US/US GALLBLADDER Exam Date: 10/19/17 Exam Time: 12 26 REPORT STATUS: Signed PROCEDURE: US GALLBLADDER COMPARISON: CT abdomen and pelvis also 10/19/2017. INDICATIONS: RUQ Pain TECHNIQUE: Duenas- scale and color doppler transverse and longitudinal images of the right upper quadrant of the abdomen were obtained. FINDINGS: Liver: 13 cm in right mid-clavicular line. Normal parenchymal echogenicity. No masses. Main portal vein: 1.0 cm in caliber. Hepatopedal flow. Gallbladder: Multiple mobile shadowing calculi without wall thickening or pericholecystic fluid. Common Bile Duct: 0.4 cm Sonographic Nascimento's sign: Reported as negative. Right kidney: 12 cm in length. Normal renal cortical echogenicity. No solid masses or hydronephrosis. Pancreas: The visualized portions are unremarka ble. Inferior vena cava: Patent Aorta: Non-aneurysmal Ascites: None in the right upper quadrant of the abdomen. CONCLUSION: Cholelithiasis without sonographic evidence of acute cholecystitis. Acute pancreatitis, s een to better advantage on comparison CT from earlier 10/19/2017. Dictated by: Elba Negron M.D. on 10/19/2017 at 7:54 Electronically approved by: Fan Negron M.D. on 10/19/2017 at 7:54 Dictated By: ELBA Chavira 0754 Transcribed By: MADALYN on 10/19/17 0752 COPY TO: SANKET ROSA MD CT ABDOMEN/PELVIS [place] [address] Patient Name: REKHA CASTILLO MR #: [id number] : 1990 Age/Sex: 27/F Req #: [id number] Adm Physician: Ordered by: SANKET ROSA MD Report #: [id number] Location: ER Room/Bed: Procedure: [id number] CT/CT ABDOMEN/PELVIS W Exa m Date: 10/19/17 Exam Time: 455 REPORT STATUS: Signed EXAM: CT ABDOMEN/PELVIS W DATE: 10/19/2017 4:08 AM INDICATION: S VICKIE/RUQ ABD PAIN, N/V S [id number] S 455 COMPARISON: None TECHNIQUE: T he abdomen and pelvis were scanned using a multidetector helical scanner. Sascha nal and sagittal reformations were obtained. Routine protocol performed. IV Contrast: 100 ml Isovue 300/370 FINDINGS: LOWER THORAX: No consolidations LIVER/BILIARY: No masses. No ductal dilatation. GALLBLADDER: No gal lstones evident on CT. SPLEEN: Unremarkable PANCREAS: Slightly heterogeneous and enlarged pancreas with peripancreatic fluid and stranding. No evidence of pancreatic necrosis. ADRENALS: No nodules KIDNEYS: Symmetric perfusion. No enhancing masses. No hydronephrosis. GI TRACT: No wall thickening or erica dence of obstruction. Normal appendix. VESSELS: Unremarkable PERITONEUM/R ETROPERITONEUM: No free air or fluid collections. LYMPH NODES: No lymphadenopa thy REPRODUCTIVE ORGANS/BLADDER: Unremarkable SOFT TISSUES: Unremarkab le BONES: No suspicious bone lesions. IMPRESSION: Interstitial edematou s pancreatitis. Signed by: Dr Sintia Gillis MD on 10/19/2017 5:38 AM Dictated By: SINTIA GILLIS MD 7 Transcribed By: KIRT on 10/19/17537 COPY TO: SANKET ROSA MD [facility] [place] [address] Patient Name: REKHA CASTILLO MR #: [id number] : 1990 Age/Sex: 27/F Req #: [id number] Adm Physician: Ordered by: SANKET ROSA MD Report #: [id number] Location: ER Room/Bed: Procedure: [id number] DX/CHEST SINGLE (PORTABLE) Exam Date: 10/19/17 Exam Time: 0340 REPORT STA TUS: Signed CHEST SINGLE (PORTABLE), 10/19/2017 3:23 AM Technique: CHEST SINGLE (PORTABLE) Comparison: None available. Clinical history: Abdominal pa in, nausea, vomiting Findings: See Impression Impression: Limited by portable technique. 1. Normal cardiomediastinal silhouette for technique. 2. No consolidation. 3. No pleural effusion or pneumothorax. Signed by: Dr Sintia Gillis MD on 10/19/2017 4:13 AM Dictated By: SINTIA GILLIS MD 2 Transcribed By: KIRT on 10/19/17412 COPY TO: SANKET ROSA MD
[2020-01-30 20:24] LABS: BASOPHILS % 0.4 % (0.0-1.0); EOSINOPHILS % 0.5 % (0.0-6.0); HEMATOCRIT 42.5 % (34.2-44.1); HEMOGLOBIN 14.6 g/dL (12.0-16.0); LYMPHOCYTES # (AUTO) 3.2 (1.0-3.2); LYMPHOCYTES % 38.3 % (18.0-39.1); MEAN CORPUSCULAR HEMOGLOBIN 29.6 pg (28-32); MEAN CORPUSCULAR HGB CONC 34.4 g/dL (31-35); MONOCYTES # (AUTO) 0.6 (0.2-0.8); NEUTROPHILS # (AUTO) 4.5 (2.1-6.9); NEUTROPHILS % 53.7 % (38.7-80.0); PLATELET COUNT 262 x10e3/uL (140-360); RED BLOOD COUNT 4.94 x10e6/uL (3.6-5.1); RED CELL DISTRIBUTION WIDTH 12.8 % (11.7-14.4)
[2020-01-30 20:39] LABS: ALANINE AMINOTRANSFERASE 25 IU/L (0-55); ALBUMIN 4.5 g/dL (3.5-5.0); ALBUMIN/GLOBULIN RATIO 1.1 (0.8-2.0); ALKALINE PHOSPHATASE 73 IU/L (40-150); ANION GAP 14.4 mmol/L (8-16); BLOOD UREA NITROGEN 14 mg/dL (7-26); BUN/CREATININE RATIO 17 (6-25); CALCIUM 9.7 mg/dL (8.4-10.2); CARBON DIOXIDE 25 mmol/L (22-29); CHLORIDE 104 mmol/L (98-107); CREATININE, SERUM 0.81 mg/dL (0.57-1.11); EST GLOMERULAR FILTRATION RATE > 60 ML/MIN (60-); GLUCOSE 84 mg/dL (74-118); POTASSIUM 3.4 mmol/L (3.5-5.1); SODIUM 140 mmol/L (136-145)
[2020-01-30] MEDS ORDERED: SODIUM CHLORIDE 0.9% 1000ML 1,000 ML ONE (21:38)
[2020-01-30 21:59] VITALS: BP 109/59
== END 2020-01-30 22:35 | disposition home or self-care (01) ==
LOC: ER 19:47
DX: T63.421A Toxic effect of venom of ants, accidental (unintentional), initial encounter (principal); T78.49XA Other allergy, initial encounter; F84.0 Autistic disorder; H91.3 Deaf nonspeaking, not elsewhere classified
CPT/HCPCS: 36415; 80053; 84702; 85025; 99284; J0171; J2930; J7030

== ENCOUNTER 2021-10-27 22:38 | Emergency (ER) | payer MEDICARE ==
[~2021-10-27] VITALS: Ht 160 cm; Wt 72.6 kg
[2021-10-27] MEDS ORDERED: FAMOTIDINE 20 MG TAB PO STA (22:44)
[2021-10-27] MEDS ORDERED: PREDNISONE 20 MG TAB PO STA (22:44)
[2021-10-27] MEDS ORDERED: DIPHENHYDRAMINE HCL 25 MG CAP PO STA (22:45)
[2021-10-27] MEDS ORDERED: PREDNISONE 20 MG TAB ONE (23:07)
[2021-10-27] MEDS ORDERED: FAMOTIDINE 20 MG TAB ONE (23:08)
[2021-10-27] MEDS ORDERED: DIPHENHYDRAMINE HCL 25 MG CAP ONE (23:08)
[2021-10-28] MEDS ORDERED: PREDNISONE20 MG PO (00:16)
[2021-10-28] MEDS ORDERED: PEPCID20 MG PO (00:16)
== END 2021-10-28 00:18 | disposition home or self-care (01) ==
LOC: ER 22:42
DX: T63.481A Toxic effect of venom of other arthropod, accidental (unintentional), initial encounter (principal); T78.3XXA Angioneurotic edema, initial encounter; T63.421A Toxic effect of venom of ants, accidental (unintentional), initial encounter
CPT/HCPCS: 99283; J7512

== ENCOUNTER 2022-02-04 18:08 | Emergency (ER) | payer MEDICARE ==
[~2022-02-04] VITALS: Ht 160 cm; Wt 72.6 kg
[~2022-02-04 18:08] MED LIST: PEPCID20 MG PO; PREDNISONE20 MG PO
== END 2022-02-04 18:37 | disposition home or self-care (01) ==
LOC: ER 18:16
DX: H10.9 Unspecified conjunctivitis (principal)
CPT/HCPCS: 99282

== ENCOUNTER 2022-10-09 07:24 | Emergency (ER) | payer MEDICARE ==
[~2022-10-09] VITALS: Ht 160 cm; Wt 72.6 kg
[2022-10-09] MEDS ORDERED: AMOXICILLIN500 MG PO (08:38)
== END 2022-10-09 08:50 | disposition home or self-care (01) ==
LOC: ER 07:31
DX: R50.9 Fever, unspecified (principal); J02.0 Streptococcal pharyngitis; R05.9 Cough, unspecified; F84.0 Autistic disorder; H91.3 Deaf nonspeaking, not elsewhere classified; Z20.822 Contact with and (suspected) exposure to COVID-19
CPT/HCPCS: 83518; 99283; U0002

== ENCOUNTER 2023-10-19 08:09 | Emergency (ER) | payer MEDICARE ==
[~2023-10-19] VITALS: Ht 160 cm; Wt 72.6 kg
[~2023-10-19 08:09] MED LIST changes: +AMOXICILLIN500 MG PO
[2023-10-19] MEDS: METHYLPREDNISOLONE SOD SUCC 125 MG/2ML VIAL IV STA (08:28)
[2023-10-19] MEDS: SODIUM CHLORIDE 0.9% 1000ML 1,000 ML IV STA (08:28)
[2023-10-19] MEDS: DIPHENHYDRAMINE HCL INJ 50 MG/ML VIAL IV ONE (08:29)
[2023-10-19] MEDS: FAMOTIDINE 20 MG/2 ML VIAL IV STA (08:29)
[2023-10-19] MEDS ORDERED: MEDROL4 M2 PO (09:10)
[2023-10-19 09:27] VITALS: O2SAT 99
== END 2023-10-19 09:31 | disposition home or self-care (01) ==
LOC: ER 08:14
DX: T78.40XA Allergy, unspecified, initial encounter (principal); T14.8XXA Other injury of unspecified body region, initial encounter; F84.0 Autistic disorder; H91.3 Deaf nonspeaking, not elsewhere classified
CPT/HCPCS: 99283; J1200; J2919; J7030

== ENCOUNTER 2024-05-14 08:52 | Emergency (ER) | payer MEDICARE ==
[~2024-05-14] VITALS: Ht 160 cm; Wt 72.6 kg
[~2024-05-14 08:52] MED LIST changes: +MEDROL4 M2 PO
[2024-05-14] MEDS: SODIUM CHLORIDE 0.9% 1000ML 1,000 ML IV STA (09:25)
[2024-05-14] MEDS: DICYCLOMINE HCL 20 MG/2 ML VIAL IM ONE (09:25)
[2024-05-14] MEDS: ONDANSETRON HCL INJ 2MG/ML 2ML 2 MG/ML VIAL IV PRN (09:42)
[2024-05-14 09:44] LABS: BASOPHILS % 0.1 % (0.0-1.0); HEMATOCRIT 42.9 % (34.2-44.1); HEMOGLOBIN 14.4 g/dL (12.0-16.0); LYMPHOCYTES # (AUTO) 0.4 (1.0-3.2); LYMPHOCYTES % 4.6 % (18.0-39.1); MEAN CORPUSCULAR HGB CONC 33.6 g/dL (31-35); MEAN CORPUSCULAR VOLUME 92.5 fL (81-99); MONOCYTES # (AUTO) 0.3 (0.2-0.8); MONOCYTES % 3.4 % (4.4-11.3); NEUTROPHILS # (AUTO) 8.3 (2.1-6.9); NEUTROPHILS % 91.6 % (38.7-80.0); PLATELET COUNT 231 x10e3/uL (140-360); RED BLOOD COUNT 4.64 x10e6/uL (3.6-5.1); RED CELL DISTRIBUTION WIDTH 13.1 % (11.7-14.4)
[2024-05-14 09:49] LABS: COLOR,URINE YELLOW (YELLOW)
[2024-05-14 09:50] LABS: BILIRUBIN,URINE NEGATIVE (NEGATIVE); CLARITY,URINE CLOUDY (CLEAR); GLUCOSE, URINE NEGATIVE (NEGATIVE); KETONES,URINE NEGATIVE (NEGATIVE); LEUKOCYTE ESTERASE ,URINE NEGATIVE (NEGATIVE); NITRITE,URINE NEGATIVE (NEGATIVE); PH,URINE 5.5 (5 - 7); PROTEIN,URINE DIPSTICK 1+ (NEGATIVE); URINE UROBILINOGEN 0.2 mg/dL (0.2 - 1)
[2024-05-14 10:08] LABS: ALBUMIN 4.6 g/dL (3.5-5.0); ALBUMIN/GLOBULIN RATIO 1.2 (0.8-2.0); BILIRUBIN,TOTAL 1.3 mg/dL (0.2-1.2); CALCIUM 9.9 mg/dL (8.4-10.2); CREATININE, SERUM 0.82 mg/dL (0.57-1.11); TOTAL PROTEIN 8.3 g/dL (6.5-8.1)
[2024-05-14 10:09] LABS: BACTERIA,URINE MANY /HPF; EPITHELIAL CELLS,URINE FEW /LPF; WBC,URINE (MAN) 0-5 /HPF (0-5)
[2024-05-14] MEDS ORDERED: CEFDINIR300 MG PO (10:20)
[2024-05-14] MEDS ORDERED: ONDANSETRON ODT4 MG PO (10:20)
[2024-05-14 11:04] VITALS: PULSE 87; RESP 16; TEMP 98.8; O2SAT 100
== END 2024-05-14 11:16 | disposition home or self-care (01) ==
LOC: ER 09:00
DX: R11.2 Nausea with vomiting, unspecified (principal); K52.9 Noninfective gastroenteritis and colitis, unspecified; N39.0 Urinary tract infection, site not specified; F84.0 Autistic disorder; H91.3 Deaf nonspeaking, not elsewhere classified
CPT/HCPCS: 36415; 80053; 81001; 83690; 84702; 85025; 99284; J0500; J2405; J2470; J7030

== ENCOUNTER 2024-09-21 18:30 | Emergency (ER) | payer MEDICARE ==
[~2024-09-21] VITALS: Ht 160 cm; Wt 72.6 kg
[~2024-09-21 18:30] MED LIST changes: +CEFDINIR300 MG PO; +ONDANSETRON ODT4 MG PO
[2024-09-21 18:35] VITALS: TEMP 98
[2024-09-21] MEDS ORDERED: EPINEPHRIN0.3 MG/0.3 IJ (18:54)
[2024-09-21] MEDS ORDERED: MEDROL4 M2 PO (18:57)
[2024-09-21] MEDS: SODIUM CHLORIDE 0.9% 1000ML 1,000 ML IV ONE (19:12)
[2024-09-21] MEDS: FAMOTIDINE 20 MG/2 ML VIAL IV STA (19:12)
[2024-09-21] MEDS: DIPHENHYDRAMINE HCL INJ 50 MG/ML VIAL IV ONE (19:12)
[2024-09-21 19:30] VITALS: PULSE 83; RESP 18
[2024-09-21 20:30] VITALS: BP 105/56; PULSE 78; RESP 18; O2SAT 99
== END 2024-09-21 20:39 | disposition home or self-care (01) ==
LOC: ER 19:00
DX: R06.02 Shortness of breath (principal); T78.49XA Other allergy, initial encounter; T63.421A Toxic effect of venom of ants, accidental (unintentional), initial encounter; F84.0 Autistic disorder; H91.3 Deaf nonspeaking, not elsewhere classified
CPT/HCPCS: 99284; J1200; J7030